=== PATIENT | male | born 1940 | race Caucasian/White ===

== ENCOUNTER 2020-08-18 12:36 | Inpatient (IN) ==
[2020-08-18] MEDS ORDERED: SODIUM CHLORIDE 0.9% 500 ML IV SCH (14:00)
[2020-08-18] MEDS ORDERED: THIAMINE HCL 200 MG in SODIUM CHLORIDE 0.9% 50 ML IV STA (14:03)
--- NOTE | 2020-08-18 14:03 | Emergency Department Note ---
Impression & Plan Palpitations, Atrial flutter, Abnormal EKG ED Provider Note NAME: JORGE RAE AGE: 79 SEX: M : 1940 ARRIVES VIA: Walk-In INFORMANT: Patient, ED PROVIDER(S): Brett Pfeiffer DO CHIEF COMPLAINT: Palpitations HPI: The patient is a 79-year-old male who presented to the emergency department for an evaluation of palpitations. The patient has a history of coronary artery bypass grafting in the past. He has had atrial flutter in the past. The patient has noted increase of his heart rate over the course the last day. He denies having any recent illnesses. He denies having any chest pain. He denies having any abdominal pain or difficulty breathing. He does have a history of lower extremity swelling but not worse than usual. The patient denies having any fever or cough. The patient states that he normally has a heart rate that is in the 50s to 60s. He started noticing that his heart rate was faster today and when he checked his pulse it was always around 100 bpm. He is visiting family from the area and does not have a family doctor locally. He came directly to the emergency department for the symptoms. ROS: See above HPI for pertinent positives & negatives. A total of 10 systems reviewed and were otherwise negative. PAST MEDICAL HISTORY: See Below PAST SURGICAL HISTORY: See Below FAMILY HISTORY: See Below SOCIAL HISTORY: See Below HOME MEDICATIONS: See Below ALLERGIES: See Below VITALS: See Below PHYSICAL EXAMINATION: GENERAL: Patient is awake alert in no acute distress patient is resting comfortably and showing no signs of anxiety EYES: The conjunctivae are clear. The pupils are round and reactive. EARS, NOSE, MOUTH AND THROAT: The nose is without any evidence of any deformity. Mucous membranes are moist. Tongue is midline. NECK: The neck is nontender and supple. RESPIRATORY: Normal respiratory effort is noted there is no evidence of wheezing rhonchi or rales CARDIOVASCULAR: Regular rate and rhythm was noted to auscultation. There was no definite murmur noted. GASTROINTESTINAL: The abdomen is soft. Abdomen is nontender. MUSCULOSKELETAL/EXTREMITIES: There is no evidence of gross deformity full range of motion is noted in the hips and shoulders. SKIN: There is no obvious evidence of any rash. Trace pedal edema was noted bilaterally. NEUROLOGIC: Patient is awake alert and oriented x 3. MEDICAL DECISION MAKING: The patient is a 79-year-old male who presented to the emergency department for an evaluation of palpitations. The patient did not have any specific chest pain or abdominal pain. The patient has a history of alcohol use but also has a history of coronary artery bypass grafting. The patient was treated with IV thiamine IV fluids and IV Lopressor in the emergency department. He was reeval uated multiple times. He continues to have what appears to be atrial flutter but it is slower than a typical atrial flutter picture. He also will have episodes where he would break to a slower atrial flutter. His EKG is also abnormal with ischemic changes. The patient had an elevated D-dimer which led to a CT of the chest. No signs of pulmonary embolism were noted. The patient was noted to have a questionable area of free air in the abdomen. This led to a CT of the abdomen and pelvis. The patient was reevaluated multiple times. I discussed the patient's condition with him. He is not from the area and does not have any follow-up available immediately. For this reason I will discuss his case with the on-call [facility] hospitalist. He may require further inpatient evaluation and possible cardiology evaluation. Triage Nursing notes reviewed. Prior medical records reviewed Vital Signs: reviewed and remarkable for elevated blood pressure and tachycardia. Differential diagnosis: Premature contractions, electrolyte abnormality, cardiac dysrhythmia, thyroid dysfunction, pulmonary embolism, infection, gastrointestinal, as well as other pathologies. ER treatment provided: See below Diagnostics interpreted by me: ECG: EKG was obtained in the emergency department. My interpretation is sinus tachycardia at 101 bpm. There was no PVCs noted. There was high as well as low lateral ST segment depressions noted. No previous tracing was available. A second EKG was obtained in the emergency department. My interpretation is sinus tachycardia at 101 bpm. There is no ectopy. There was persistence of the lateral ST segment abnormalities. No significant change was noted from the earlier tracing. Cardiac Monitoring: An order was placed for continuous cardiac monitoring. The monitor shows a rate of 110 bpm with atrial flutter rhythm. Laboratory studies: As stated above and show below. Imaging studies: See below Consultation(s): I discussed this case with Dr. Wood. He will evaluate the patient in the emergency department for further management and disposition. ED COURSE: Procedures: none PDMP:reviewed and no issues Critical Care: I have personally spent greater than 65 minutes of critical care time in the direct management of this patient. This includes bedside care, interpretation of diagnostic studies, and testing, discussion with consultants, patient, and family members, and other required patient management activities. This 65 minutes is in excess of all separately billable procedures. Past Med/Surg History Medical History (Updated 08/19/20 @ 06:17 by Ángel Dasilva MD) Atrial flutter BPH w urinary obs/LUTS Depression GERD (gastroesophageal reflux disease) Hypertension NSVT (nonsustained ventricular tachycardia) Vitamin B12 deficiency Surgical History History of left hip replacement Hx of CABG Social History (Updated 08/18/20 @ 14:03 by Brett Pfeiffer DO) Smoking Status: Never smoker Second Hand Exposure: No; Do You Dip or Chew Tobacco: No; Hx Alcohol Use: Yes Alcohol type: beer, wine and hard liquor Alcohol Intake Frequency: 4 or More x per/Week Hx Substance Use: No Preferred Language: Vietnamese Communication Ability: Effective C.O.D. Biller Required: No Beliefs That Will Affect Care: None Current Living Situation: Spouse Other Information That Helps Us Care for You: No Feels Safe at Home: Yes Safety Concerns: Feels Safe At This Time Assistive Devices: None Allergies Allergies Allergy/AdvReac Type Severity Reaction Status Date / Time No Known Allergies Allergy Unverified 08/18/20 15:13 Home Meds Home Medications Medication Instructions Recorded Confirmed amlodipine 10 mg PO DAILY 08/18/20 08/18/20 aspirin [Aspirin Low Dose] 81 mg PO DAILY 08/18/20 08/18/20 atorvastatin 40 mg PO QPM 08/18/20 08/18/20 cholecalciferol (vitamin D3) 25 mcg PO DAILY 08/18/20 08/18/20 [Vitamin D3] cyanocobalamin (vitamin B-12) 1,000 mcg PO DAILY 08/18/20 08/18/20 [Vitamin B-12] fluoxetine 10 mg PO Q OTHER DAY 08/18/20 08/18/20 losartan 100 mg PO DAILY 08/18/20 08/18/20 metoprolol succinate 50 mg PO DAILY 08/18/20 08/18/20 omeprazole 20 mg PO DAILY 08/18/20 08/18/20 terazosin 10 mg PO DAILY 08/18/20 08/18/20 Results & Data (ED) Vital Signs Vital Signs - 24 hr 08/18/20 12:55 08/18/20 14:37 08/18/20 15:21 Temperature 36.1 C L Temperature Source Temporal Artery Scan Pulse Rate 101 H Pulse Rate [Apical] 104 H Pulse Rate from SpO2 Sensor Respiratory Rate 20 18 Blood Pressure 166/84 H Blood Pressure [Left Arm] 180/109 H Blood Pressure Mean 111 Blood Pressure Mean [Left Arm] 132 Pulse Oximetry 99 97 99 Oxygen Delivery Method Room Air Room Air Room Air Sepsis Recent Fever Within 48 Hours No Sepsis New/Unexplained Change in Mental Status No Sepsis Action Taken by Nursing No Action Required 08/18/20 15:22 08/18/20 15:30 08/18/20 15:32 Temperature Temperature Source Pulse Rate 102 H 103 H 102 H Pulse Rate [Apical] Pulse Rate from SpO2 Sensor 103 H 103 H Respiratory Rate 15 20 Blood Pressure 167/101 H 177/104 H 177/104 H Blood Pressure [Left Arm] Blood Pressure Mean 123 128 Blood Pressure Mean [Left Arm] Pulse Oximetry 98 97 Oxygen Delivery Method Sepsis Recent Fever Within 48 Hours Sepsis New/Unexplained Change in Mental Status Sepsis Action Taken by Nursing 08/18/20 15:36 08/18/20 15:46 08/18/20 15:47 Temperature Temperature Source Pulse Rate 101 H 101 H 101 H Pulse Rate [Apical] Pulse Rate from SpO2 Sensor 102 H 102 H 101 H Respiratory Rate 22 16 16 Blood Pressure 161/94 H 176/103 H Blood Pressure [Left Arm] Blood Pressure Mean 116 127 Blood Pressure Mean [Left Arm] Pulse Oximetry 98 97 98 Oxygen Delivery Method Sepsis Recent Fever Within 48 Hours Sepsis New/Unexplained Change in Mental Status Sepsis Action Taken by Nursing 08/18/20 15:54 08/18/20 16:00 08/18/20 17:19 Temperature Temperature Source Pulse Rate 104 H 88 103 H Pulse Rate [Apical] Pulse Rate from SpO2 Sensor 94 H 103 H Respiratory Rate 12 24 Blood Pressure 176/103 H 165/99 H 174/96 H Blood Pressure [Left Arm] Blood Pressure Mean 121 122 Blood Pressure Mean [Left Arm] Pulse Oximetry 98 98 Oxygen Delivery Method Sepsis Recent Fever Within 48 Hours Sepsis New/Unexplained Change in Mental Status Sepsis Action Taken by Nursing 08/18/20 18:12 08/18/20 18:30 08/18/20 19:00 Temperature Temperature Source Pulse Rate 104 H 104 H 105 H Pulse Rate [Apical] Pulse Rate from SpO2 Sensor 105 H 104 H 105 H Respiratory Rate 18 17 18 Blood Pressure 161/98 H 165/94 H 156/95 H Blood Pressure [Left Arm] Blood Pressure Mean 119 117 115 Blood Pressure Mean [Left Arm] Pulse Oximetry 98 97 97 Oxygen Delivery Method Sepsis Recent Fever Within 48 Hours Sepsis New/Unexplained Change in Mental Status Sepsis Action Taken by Nursing 08/18/20 20:00 Temperature Temperature Source Pulse Rate 107 H Pulse Rate [Apical] Pulse Rate from SpO2 Sensor 107 H Respiratory Rate 13 Blood Pressure 166/99 H Blood Pressure [Left Arm] Blood Pressure Mean 121 Blood Pressure Mean [Left Arm] Pulse Oximetry 98 Oxygen Delivery Method Sepsis Recent Fever Within 48 Hours Sepsis New/Unexplained Change in Mental Status Sepsis Action Taken by Shelter Medications Current Medication List: was personally reviewed by me Laboratory Data Attestation: I reviewed the patient's lab results. Result diagrams: 08/19/20 06:07 08/19/20 06:07 Lab Results 08/18/20 08/18/20 08/18/20 Range/Units 14:20 14:20 14:20 WBC 6.28 (4.8-10.8) K/uL RBC 4.35 L (4.7-6.1) M/uL Hgb 13.9 L (14.0-18.0) g/dL Hct 39.6 L (42-52) % MCV 91.0 (80-100) fL MCH 32.0 (25-34) pg MCHC 35.1 (32-36) g/dL RDW Std Deviation 47.5 H (36.4-46.3) fL RDW Coeff of Gila 14.1 (11.5-14.5) % Plt Count 171 (130-400) K/uL MPV 11.5 H (7.4-10.4) fL Immature Gran % (Auto) 0.3 % Neut % (Auto) 59.5 % Lymph % (Auto) 26.4 % Woods % (Auto) 9.2 % Eos % (Auto) 3.3 % Baso % (Auto) 1.3 % Neut # (Auto) 3.73 (1.4-6.5) K/uL Lymph # (Auto) 1.66 (1.2-3.4) K/uL Woods # (Auto) 0.58 (0.11-0.59) K/uL Eos # (Auto) 0.21 (0-0.5) K/uL Baso # (Auto) 0.08 (0-0.2) K/uL Immature Gran # (Auto) 0.02 (0.00-0.02) K/uL PT 11.1 (9.0-12.0) Seconds INR 1.1 (0.9-1.1) APTT 24.8 (21.0-31.0) Seconds PTT Ratio 0.9 D-Dimer (0-500) ug/L FEU Sodium 142 (136-145) mmol/L Potassium 4.1 (3.5-5.1) mmol/L Chloride 109 H (98-107) mmol/L Carbon Dioxide 28 (21-32) mmol/L Anion Gap 5.0 (3-11) BUN 25 H (7-18) mg/dl Creatinine 0.95 (0.6-1.4) mg/dl Est Cr Clr Drug Dosing 73.6 ml/min Est GFR ( Amer) 89.1 Est GFR (Non-Af Amer) 76.9 BUN/Creatinine Ratio 25.8 H (10-20) Glucose 104 H (70-99) mg/dl Calcium 9.3 (8.5-10.1) mg/dl Magnesium 2.1 (1.8-2.4) mg/dl Total Bilirubin 1.0 (0.2-1) mg/dl AST 42 H (15-37) U/L ALT 51 (12-78) U/L Alkaline Phosphatase 82 (45-117) U/L Troponin I < 0.015 (0-0.045) ng/ml Total Protein 7.3 (6.4-8.2) gm/dl Albumin 4.1 (3.4-5.0) gm/dl Globulin 3.2 (2.5-4.0) gm/dl Albumin/Globulin Ratio 1.3 (0.9-2) TSH 2.950 (0.300-4.500) uIu/ml Urine Color Urine Appearance (Clear) Urine pH (4.5-7.5) Ur Specific Webster (1.000-1.030) Urine Protein (Negative) Urine Glucose (UA) (Negative) Urine Ketones (Negative) Urine Blood (Negative) Urine Nitrite (Negative) Urine Bilirubin (Negative) Urine Urobilinogen (Negative) Ur Leukocyte Esterase (Negative) COVID-19 Eval Order SARS-CoV-2 (PCR) (Negative) Influenza Type A (PCR) (Neg) Influenza Type B (PCR) (Neg) RSV (RT-PCR) (Neg) 08/18/20 08/18/20 08/18/20 Range/Units 14:20 14:40 16:20 WBC (4.8-10.8) K/uL RBC (4.7-6.1) M/uL Hgb (14.0-18.0) g/dL Hct (42-52) % MCV (80-100) fL MCH (25-34) pg MCHC (32-36) g/dL RDW Std Deviation (36.4-46.3) fL RDW Coeff of Gila (11.5-14.5) % Plt Count (130-400) K/uL MPV (7.4-10.4) fL Immature Gran % (Auto) % Neut % (Auto) % Lymph % (Auto) % Woods % (Auto) % Eos % (Auto) % Baso % (Auto) % Neut # (Auto) (1.4-6.5) K/uL Lymph # (Auto) (1.2-3.4) K/uL Woods # (Auto) (0.11-0.59) K/uL Eos # (Auto) (0-0.5) K/uL Baso # (Auto) (0-0.2) K/uL Immature Gran # (Auto) (0.00-0.02) K/uL PT (9.0-12.0) Seconds INR (0.9-1.1) APTT (21.0-31.0) Seconds PTT Ratio D-Dimer 4180 H* (0-500) ug/L FEU Sodium (136-145) mmol/L Potassium (3.5-5.1) mmol/L Chloride (98-107) mmol/L Carbon Dioxide (21-32) mmol/L Anion Gap (3-11) BUN (7-18) mg/dl Creatinine (0.6-1.4) mg/dl Est Cr Clr Drug Dosing ml/min Est GFR ( Amer) Est GFR (Non-Af Amer) BUN/Creatinine Ratio (10-20) Glucose (70-99) mg/dl Calcium (8.5-10.1) mg/dl Magnesium (1.8-2.4) mg/dl Total Bilirubin (0.2-1) mg/dl AST (15-37) U/L ALT (12-78) U/L Alkaline Phosphatase (45-117) U/L Troponin I (0-0.045) ng/ml Total Protein (6.4-8.2) gm/dl Albumin (3.4-5.0) gm/dl Globulin (2.5-4.0) gm/dl Albumin/Globulin Ratio (0.9-2) TSH (0.300-4.500) uIu/ml Urine Color Yellow Urine Appearance Clear (Clear) Urine pH 7.0 (4.5-7.5) Ur Specific Webster 1.009 (1.000-1.030) Urine Protein Negative (Negative) Urine Glucose (UA) Negative (Negative) Urine Ketones Negative (Negative) Urine Blood Negative (Negative) Urine Nitrite Negative (Negative) Urine Bilirubin Negative (Negative) Urine Urobilinogen Negative (Negative) Ur Leukocyte Esterase Negative (Negative) COVID-19 Eval Order [facility]Rsv at [facility] SARS-CoV-2 (PCR) (Negative) Influenza Type A (PCR) (Neg) Influenza Type B (PCR) (Neg) RSV (RT-PCR) (Neg) 08/18/20 Range/Units 16:20 WBC (4.8-10.8) K/uL RBC (4.7-6.1) M/uL Hgb (14.0-18.0) g/dL Hct (42-52) % MCV (80-100) fL MCH (25-34) pg MCHC (32-36) g/dL RDW Std Deviation (36.4-46.3) fL RDW Coeff of Gila (11.5-14.5) % Plt Count (130-400) K/uL MPV (7.4-10.4) fL Immature Gran % (Auto) % Neut % (Auto) % Lymph % (Auto) % Woods % (Auto) % Eos % (Auto) % Baso % (Auto) % Neut # (Auto) (1.4-6.5) K/uL Lymph # (Auto) (1.2-3.4) K/uL Woods # (Auto) (0.11-0.59) K/uL Eos # (Auto) (0-0.5) K/uL Baso # (Auto) (0-0.2) K/uL Immature Gran # (Auto) (0.00-0.02) K/uL PT (9.0-12.0) Seconds INR (0.9-1.1) APTT (21.0-31.0) Seconds PTT Ratio D-Dimer (0-500) ug/L FEU Sodium (136-145) mmol/L Potassium (3.5-5.1) mmol/L Chloride (98-107) mmol/L Carbon Dioxide (21-32) mmol/L Anion Gap (3-11) BUN (7-18) mg/dl Creatinine (0.6-1.4) mg/dl Est Cr Clr Drug Dosing ml/min Est GFR ( Amer) Est GFR (Non-Af Amer) BUN/Creatinine Ratio (10-20) Glucose (70-99) mg/dl Calcium (8.5-10.1) mg/dl Magnesium (1.8-2.4) mg/dl Total Bilirubin (0.2-1) mg/dl AST (15-37) U/L ALT (12-78) U/L Alkaline Phosphatase (45-117) U/L Troponin I (0-0.045) ng/ml Total Protein (6.4-8.2) gm/dl Albumin (3.4-5.0) gm/dl Globulin (2.5-4.0) gm/dl Albumin/Globulin Ratio (0.9-2) TSH (0.300-4.500) uIu/ml Urine Color Urine Appearance (Clear) Urine pH (4.5-7.5) Ur Specific Webster (1.000-1.030) Urine Protein (Negative) Urine Glucose (UA) (Negative) Urine Ketones (Negative) Urine Blood (Negative) Urine Nitrite (Negative) Urine Bilirubin (Negative) Urine Urobilinogen (Negative) Ur Leukocyte Esterase (Negative) COVID-19 Eval Order SARS-CoV-2 (PCR) NEGATIVE (Negative) Influenza Type A (PCR) Negative (Neg) Influenza Type B (PCR) Negative (Neg) RSV (RT-PCR) Negative (Neg) Administered Medications Atorvastatin Calcium (Atorvastatin 40 Mg Tab) 40 mg PO QPM [facility] Stop: 09/17/20 22:17 Last Admin: 08/18/20 23:17 Dose: 40 mg Documented by: [id number] Enoxaparin Sodium (Enoxaparin 100 Mg/1ml Syr) 100 mg SQ Q12 [facility]Y Stop: 09/17/20 20:59 Last Admin: 08/18/20 22:45 Dose: 100 mg Documented by: [id number] Folic Acid (Folic Acid 1 Mg Tab) 1 mg PO QAM [facility] Stop: 09/17/20 08:59 Last Admin: 08/18/20 22:40 Dose: 1 mg Documented by: [id number] Piperacillin Sod/Tazobactam (Sod 3.375 gm/ Dextrose) 115 mls @ 28.75 mls/hr IV Q8H [facility]; Protocol Stop: 08/28/20 21:59 Last Admin: 08/19/20 05:46 Dose: 28.8 mls/hr Documented by: [id number] Infusion: 08/19/20 02:51 Dose: 0 mls/hr Documented by: [id number] Admin: 08/18/20 22:40 Dose: 28.8 mls/hr Documented by: [id number] Potassium Chloride/Sodium Chloride (Normal Saline W/20 Meq Kcl) 20 meq in 1,000 mls @ 60 mls/hr IV .[id number] [facility] Stop: 09/17/20 22:17 Last Admin: 08/18/20 23:17 Dose: 60 mls/hr Documented by: [id number] Metoprolol Succinate (Metoprolol Succ 50mg Ext Rel Tab) 50 mg PO BID [facility] Stop: 09/17/20 22:17 Last Admin: 08/18/20 23:57 Dose: Not Given Documented by: [id number] Thiamine HCl (Thiamine Hcl 100 Mg Tab) 100 mg PO QAM [facility] Stop: 09/17/20 08:59 Last Admin: 08/18/20 22:40 Dose: 100 mg Documented by: [id number] Discontinued Medications Sodium Chloride (Nss) 500 mls @ 999 mls/hr IV .Q31M [facility] Stop: 08/18/20 14:30 Last Infusion: 08/18/20 14:53 Dose: 0 mls/hr Documented by: [id number] Admin: 08/18/20 14:22 Dose: 999 mls/hr Documented by: [id number] Thiamine HCl 200 mg/ Sodium (Chloride) 52 mls @ 208 mls/hr IV NOW STA Stop: 08/18/20 14:17 Last Infusion: 08/18/20 14:39 Dose: 0 mls/hr Documented by: [id number] Admin: 08/18/20 14:22 Dose: 208 mls/hr Documented by: [id number] Piperacillin Sod/Tazobactam Sod (Zosyn) 4.5 gm in 120 mls @ 240 mls/hr IV NOW ONE Stop: 08/18/20 18:19 Last Infusion: 08/18/20 22:25 Dose: 0 mls/hr Documented by: [id number] Admin: 08/18/20 18:12 Dose: 240 mls/hr Documented by: [id number] Ioversol (Optiray 320 125ml) 119 ml IV ONCE ONE Stop: 08/18/20 17:01 Last Admin: 08/18/20 17:01 Dose: 119 ml Documented by: [id number] Metoprolol Succinate (Metoprolol Succ 50mg Ext Rel Tab) 50 mg PO NOW STA Stop: 08/18/20 20:26 Last Admin: 08/18/20 22:46 Dose: Not Given Documented by: [id number] Metoprolol Tartrate (Metoprolol Tartrate 1 Mg/Ml Vial) 5 mg IV NOW STA Stop: 08/18/20 15:23 Last Admin: 08/18/20 15:32 Dose: 5 mg Documented by: [id number] Metoprolol Tartrate (Metoprolol Tartrate 1 Mg/Ml Vial) 5 mg IV NOW STA Stop: 08/18/20 15:50 Last Admin: 08/18/20 15:54 Dose: 5 mg Documented by: [id number] Metoprolol Tartrate (Metoprolol Tartrate 1 Mg/Ml Vial) 5 mg IV NOW STA Stop: 08/18/20 17:50 Last Admin: 08/18/20 18:12 Dose: 5 mg Documented by: [id number] Imaging Data Radiologist's Impression: Chest X-Ray 08/18/20 13:59 XR chest 1V portable HISTORY: weakness COMPARISON: None. FINDINGS: No focal lung consolidations to suggest pneumonia. No evidence for pulmonary edema. The cardiac silhouette is mildly enlarged. There are poststernotomy changes. No pleural effusions. No pneumothorax. IMPRESSION: Mild cardiomegaly. Otherwise, no acute process within the chest. ACT 112: Negative or not required by law. Electronically signed by: Castro Brunner M.D. 08/18/2020 2:26 PM Chest CTA 08/18/20 16:20 CT ANGIOGRAM OF THE CHEST CLINICAL HISTORY: Dyspnea. COMPARISON STUDY: Chest x-ray dated 08/18/2020. TECHNIQUE: Following the IV administration of 119 cc of Optiray 320, CT angiogram of the chest was performed from the upper abdomen to the thoracic inlet utilizing the pulmonary embolus protocol. Images are reviewed in the axial, sagittal, and coronal planes. 3-D MIPS images are created and assessed. IV contrast was administered without complication. A dose lowering technique was utilized adhering to the principles of ALARA. CT DOSE: 517.65 mGycm FINDINGS: Thyroid: Normal in size and heterogeneous in attenuation. Thoracic aorta: There is atherosclerotic calcification of the thoracic aorta, which is normal in caliber and demonstrates standard 3-vessel arch anatomy. No dissection is seen. Pulmonary vasculature: The pulmonary trunk is normal in caliber. There are no filling defects identified in main, lobar, or segmental pulmonary branches to suggest pulmonary embolus. Heart: The patient is status post midline sternotomy. The heart is enlarged and without pericardial effusion. The coronary arteries are densely calcified. Epicardial pacing leads are noted. Lungs and pleural spaces: Evaluation of the lung parenchyma is degraded by motion artifact. Emphysematous change is noted. There is bibasilar scarring/atelectasis. No airspace consolidation is seen typical for pneumonia and there is no pleural effusion. Scattered calcified granulomas are noted. There is a 1.4 cm irregular pleural-based density in the right apex seen on image #256. There is minimal low suspicion nodularity along the right major fissure seen on image #137. Mediastinum: There is no mediastinal lymphadenopathy. Zari: Clear. Axillae: There is no axillary lymphadenopathy. Upper abdomen: There is trace perihepatic ascites. Soft tissue infiltration is suggested in the left upper quadrant. Question foci of venous gas within the left upper quadrant along the greater curvature of the stomach (axial image #9). Skeletal structures: No lytic or blastic bony lesions are seen. IMPRESSION: 1. There is no evidence of pulmonary embolus in the main, lobar, or segmental pulmonary arteries. 2. Cardiomegaly and emphysema. 3. There is trace perihepatic ascites, with inflammatory change suggested in the left upper quadrant. Question foci of intravenous gas in the upper abdomen. These findings are nonspecific and not well assessed on this examination, but raise concern for intra-abdominal pathology. Consider dedicated CT of the abdomen for further assessment. 4. There is no airspace consolidation or pleural effusion. 5. There is a 1.4 cm indeterminant focus of pleural-based nodularity in the right upper lobe. This may represent scarring/fibrosis. A 3 month follow-up chest CT is recommended for reassessment. 6. Additional findings as above. ACT 112: Negative or not required by law. Electronically signed by: Gustavo Hudson M.D. 08/18/2020 5:41 PM Discharge Plan Visit Data Chief Complaint: Tachycardia Stated Complaint: TACHYCARDIA ED Provider: Brett Pfeiffer Discharge Problem: Palpitations, Atrial flutter, Abnormal EKG Patient Disposition: Admitted As Inpatient Condition: Good Discharge Instructions Interventions: ED Discharge Assessment Last Done: 08/18/20 22:20 Discharge Problem: Atrial flutter Qualifiers: Atrial flutter type: unspecified Qualified Code(s): I48.92 - Unspecified atrial flutter
--- NOTE | 2020-08-18 14:28 | XRay Report ---
XR chest 1V portable HISTORY: weakness COMPARISON: None. FINDINGS: No focal lung consolidations to suggest pneumonia. No evidence for pulmonary edema. The car diac silhouette is mildly enlarged. There are poststernotomy changes. No pleural effusions. No pneumo thorax. IMPRESSION: Mild cardiomegaly. Otherwise, no acute process within the chest. ACT 112: Negative or not required by law. Electronically signed by: Castro Brunner M.D. 08/18/2020 2:26 PM
[2020-08-18 14:36] LABS: Basophils # (auto) 0.08 K/uL (0-0.2); Basophils % (auto) 1.3 %; Eosinophils # (auto) 0.21 K/uL (0-0.5); Eosinophils % (auto) 3.3 %; Hematocrit (blood only) 39.6 % (42-52); Hemoglobin 13.9 g/dL (14.0-18.0); Immature Granulocytes # (auto) 0.02 K/uL (0.00-0.02); Immature Granulocytes % (auto) 0.3 %; Lymphocytes # (auto) 1.66 K/uL (1.2-3.4); Lymphocytes % (auto) 26.4 %; Mean Corpuscular Hgb Conc 35.1 g/dL (32-36); Mean Platelet Volume 11.5 fL (7.4-10.4); Monocytes # (auto) 0.58 K/uL (0.11-0.59); Monocytes % (auto) 9.2 %; Neutrophils # (auto) 3.73 K/uL (1.4-6.5); Neutrophils % (auto) 59.5 %; Platelet Count 171 K/uL (130-400); RDW Coefficient of Variation 14.1 % (11.5-14.5); RDW Standard Deviation 47.5 fL (36.4-46.3); Red Blood Count 4.35 M/uL (4.7-6.1); White Blood Count 6.28 K/uL (4.8-10.8)
[2020-08-18 14:47] LABS: INR 1.1 (0.9-1.1); Partial Thromboplastin Ratio 0.9; Partial Thromboplastin Time 24.8 Seconds (21.0-31.0); Prothrombin Time 11.1 Seconds (9.0-12.0)
[2020-08-18 14:50] LABS: Appearance Urine Clear (Clear); Bilirubin Urine Negative (Negative); Blood Urine Negative (Negative); Color Urine Yellow; Glucose Urine UA Negative (Negative); Ketones Urine Negative (Negative); Leukocyte Esterase Urine Negative (Negative); Nitrite Urine Negative (Negative); Protein Urine Negative (Negative); Specific Gravity Urine 1.009 (1.000-1.030); Urobilinogen Urine Negative (Negative)
[2020-08-18 14:57] LABS: Albumin Level 4.1 gm/dl (3.4-5.0); BUN Creatinine Ratio 25.8 (10-20); Blood Urea Nitrogen 25 mg/dl (7-18); Calcium 9.3 mg/dl (8.5-10.1); Carbon Dioxide 28 mmol/L (21-32); Chloride 109 mmol/L (98-107); Creatinine Clr Calc Pharmacy 73.6 ml/min; Est GFR (African American) 89.1; Est GFR (Non-African American) 76.9; Glucose 104 mg/dl (70-99); Magnesium 2.1 mg/dl (1.8-2.4); Potassium 4.1 mmol/L (3.5-5.1); Sodium 142 mmol/L (136-145)
[2020-08-18 15:07] LABS: Alanine Aminotransferase 51 U/L (12-78); Albumin Globulin Ratio 1.3 (0.9-2); Alkaline Phosphatase 82 U/L (45-117); Aspartate Aminotransferase 42 U/L (15-37); Globulin 3.2 gm/dl (2.5-4.0); Total Protein 7.3 gm/dl (6.4-8.2); Troponin I < 0.015 ng/ml (0-0.045)
[2020-08-18] MEDS ORDERED: METOPROLOL TARTRATE 1 MG/ML VIAL IV STA ×3 (15:22→17:49)
[2020-08-18 16:12] LABS: D Dimer 4180 ug/L FEU (0-500)
[2020-08-18] MEDS ORDERED: OPTIRAY 320 125ml IV ONE (17:00)
[2020-08-18 17:14] LABS: Influenza A virus by PCR Negative (Neg); Influenza B virus by PCR Negative (Neg); RSV by PCR Negative (Neg); SARS CoV2 RNA(COVID-19) InHosp NEGATIVE (Negative)
--- NOTE | 2020-08-18 17:42 | CT Scan Report ---
CT ANGIOGRAM OF THE CHEST CLINICAL HISTORY: Dyspnea. COMPARISON STUDY: Chest x-ray dated 08/18/2020. TECHNIQUE: Following the IV administration of 119 cc of Optiray 320, CT angiogram of the chest was pe rformed from the upper abdomen to the thoracic inlet utilizing the pulmonary embolus protocol. Images are reviewed in the axial, sagittal, and coronal planes. 3-D MIPS images are created and assessed. I V contrast was administered without complication. A dose lowering technique was utilized adhering to the principles of ALARA. CT DOSE: 517.65 mGycm FINDINGS: Thyroid: Normal in size and heterogeneous in attenuation. Thoracic aorta: There is atherosclerotic calcification of the thoracic aorta, which is normal in susan julia and demonstrates standard 3-vessel arch anatomy. No dissection is seen. Pulmonary vasculature: The pulmonary trunk is normal in caliber. There are no filling defects identif ied in main, lobar, or segmental pulmonary branches to suggest pulmonary embolus. Heart: The patient is status post midline sternotomy. The heart is enlarged and without pericardial e ffusion. The coronary arteries are densely calcified. Epicardial pacing leads are noted. Lungs and pleural spaces: Evaluation of the lung parenchyma is degraded by motion artifact. Emphysema tous change is noted. There is bibasilar scarring/atelectasis. No airspace consolidation is seen typi julio cesar for pneumonia and there is no pleural effusion. Scattered calcified granulomas are noted. There i s a 1.4 cm irregular pleural-based density in the right apex seen on image #256. There is minimal low suspicion nodularity along the right major fissure seen on image #137. Mediastinum: There is no mediastinal lymphadenopathy. Zari: Clear. Axillae: There is no axillary lymphadenopathy. Upper abdomen: There is trace perihepatic ascites. Soft tissue infiltration is suggested in the left upper quadrant. Question foci of venous gas within the left upper quadrant along the greater curvatur e of the stomach (axial image #9). Skeletal structures: No lytic or blastic bony lesions are seen. IMPRESSION: 1. There is no evidence of pulmonary embolus in the main, lobar, or segmental pulmonary arteries. 2. Cardiomegaly and emphysema. 3. There is trace perihepatic ascites, with inflammatory change suggested in the left upper quadrant. Question foci of intravenous gas in the upper abdomen. These findings are nonspecific and not well a ssessed on this examination, but raise concern for intra-abdominal pathology. Consider dedicated CT o f the abdomen for further assessment. 4. There is no airspace consolidation or pleural effusion. 5. There is a 1.4 cm indeterminant focus of pleural-based nodularity in the right upper lobe. This ma y represent scarring/fibrosis. A 3 month follow-up chest CT is recommended for reassessment. 6. Additional findings as above. ACT 112: Negative or not required by law. Electronically signed by: Gustavo Hudson M.D. 08/18/2020 5:41 PM
[2020-08-18] MEDS ORDERED: PIPERACILLIN/TAZOBACTAM 4.5 GM/120 ML BAG IV ONE (17:50)
[2020-08-18] MEDS ORDERED: PIPERACILL/TAZOBAC CONSULT ACTIVE PRN (17:50)
--- NOTE | 2020-08-18 18:52 | CT Scan Report ---
CT SCAN OF THE ABDOMEN AND PELVIS WITHOUT IV CONTRAST CLINICAL HISTORY: Abnormal chest CT. Abdominal ascites. COMPARISON STUDY: Chest CT dated 08/18/2020. TECHNIQUE: CT scan of the abdomen and pelvis is performed from the lung bases to the proximal femora. Images are reviewed in the axial, sagittal, and coronal planes. IV contrast was not administered for this examination. A dose lowering technique was utilized adhering to the principles of ALARA. Examin ation is degraded by motion artifact. CT DOSE: 568.31 mGy.cm FINDINGS: Lung bases: The heart is mildly enlarged and without pericardial effusion. Epicardial pacing leads ar e noted. There is bibasilar scarring/atelectasis. There are scattered calcified granulomas. No airspa ce consolidation or pleural effusion is identified. Liver: The unenhanced liver is normal in size, contour, and attenuation. There is no intrahepatic goran iary ductal dilatation. Gallbladder: Unremarkable. Spleen: Normal in size and attenuation. Pancreas: Unremarkable. Adrenal glands: Unremarkable. Kidneys: The unenhanced kidneys demonstrate cortical atrophy. There is mild to moderate bilateral hyd roureteronephrosis, likely secondary to marked bladder distention. The renal collecting systems and u reters are filled with excreted IV contrast. There is no evidence of urothelial lesion or contour def orming mass lesion. A 2.3 cm cyst is noted in the left kidney. Abdominal vasculature: The abdominal aorta is normal in course and caliber noting advanced atheroscle rotic calcification. Bowel: There is no bowel obstruction. Mild fecal retention is noted throughout the colon. The appendi x is not visualized. Peritoneum: There is trace perihepatic ascites. Mild edematous changes noted throughout the mesentery . No intraperitoneal free air is seen. No venous gas is seen in the upper abdomen. Lymphadenopathy: None. Pelvic viscera: Evaluation of the pelvis is degraded by streak artifact from a left hip arthroplasty. The bladder is markedly distended and filled with excreted IV contrast. The bladder wall appears thi ckened and trabeculated indicating chronic outlet obstruction. The prostate gland is significantly en larged noting median lobe hypertrophy. Skeletal structures: The skeletal structures are osteopenic. There is moderate to advanced lumbosacra l spondylosis. No lytic or blastic lesions are seen. A left hip arthroplasty is in place. Soft tissues: There is body wall edema. IMPRESSION: 1. Motion compromised examination. 2. Prostatomegaly with evidence of chronic bladder outlet obstruction. 3. There is mild to moderate bilateral hydroureteronephrosis, likely secondary to marked bladder dist ention. 4. There is trace perihepatic ascites, mesenteric edema, and body wall edema. These findings suggest fluid overload. 5. No venous gas is seen in the upper abdomen. The finding of concern by chest CT likely corresponded to partially imaged bowel. 6. Additional findings as above. ACT 112: Negative or not required by law. Electronically signed by: Gustavo Hudson M.D. 08/18/2020 6:50 PM
[2020-08-18] MEDS ORDERED: LORazepam 2 MG/4 ML VIAL IV PRN (20:25)
[2020-08-18] MEDS ORDERED: METOPROLOL SUCC 50MG EXT REL TAB PO STA (20:25)
[2020-08-18] MEDS ORDERED: ATIVAN IV ALCOHOL WITHDRAWL IV PRN (20:25)
[2020-08-18] MEDS ORDERED: LORazepam 3 MG/6 ML VIAL IV PRN (20:25)
[2020-08-18] MEDS ORDERED: LORazepam 1 MG/2 ML VIAL IV PRN (20:25)
--- NOTE | 2020-08-18 20:27 | History & Physical Report ---
Date of Service August 18, 2020 Assessment & Plan (1) Intermittent atrial flutter: Atrial flutter palpitations/history atrial fibrillation post CABG/hypertension- Patient reports he did require anticoagulation shortly after his bypass several years ago. He denies any further episodes of irregularity of heart rate for the past several years. Heart monitor in the emergency initially showed sustained heart rate at 101 with was thought to be atrial flutter with persistent block. As patient was watched for the emergency department, he alternated between persistent block and variable block of 2-1 and 3:1 ratio. No electrolyte abnormalities to explain symptoms. The patient will be admitted to telemetry for serial cardiac enzymes, serial EKG's, cardiac rhythm monitoring and a 2-D echocardiogram with Dopplers. Lovenox 1 mg kilogram subcu every 12 hours Consult cardiology to see in a.m. May be an alcohol withdrawal component, as patient reports drinking some amounts of alcohol daily basis, and has just completed a long car trip without intake We will give an additional dose of metoprolol succinate 50 mg p.o. x1 now, and then increase dosing from 50 mg p.o. daily to twice daily. Hold amlodipine and losartan. For now continue Terazosin due to significant issues with BPH, bladder outlet obstruction and bilateral hydronephrosis Present on Admission?: Yes (2) Palpitations: See above Present on Admission?: Yes (3) BPH w urinary obs/LUTS: BPH with urinary obstruction/LUTS/Marked bladder distention/bilateral hydroureteronephrosis- We will continue Terazosin 10 mg at bedtime. This does not appear to be a new issue, and since the patient is out of state, unless he develops more significant symptoms, it may be best addressed by his primary medical team Present on Admission?: Yes (4) GERD (gastroesophageal reflux disease): Continue omeprazole/pantoprazole Present on Admission?: Yes (5) Vitamin B12 deficiency: Continue B12 supplementation Present on Admission?: Yes (6) Depression: Continue fluoxetine Present on Admission?: Yes (7) Hydronephrosis due to obstruction of bladder: See above Present on Admission?: Yes (8) Pulmonary nodule 1 cm or greater in diameter: Right upper lobe 1.4 cm pulmonary nodule noted on CTA PE protocol. D-dimer was elevated at 4180, and CTA was negative for PE Recommendation from radiology is to repeat imaging in 3 months Present on Admission?: Yes (9) Hypertension: See above Present on Admission?: Yes (10) Alcohol use: Placed on AWSS protocol. No signs of active withdrawal at this time Present on Admission?: Yes History of Present Illness Chief Complaint: The patient presents to the emergency department due to concern regarding palpitations Primary Care Provider: TOM GAMBLE The patient is a 79-year-old male with a past medical history including hypertension, hyperlipidemia, vitamin B12 deficiency, depression, GERD, BPH with LUTS, status post CABG, atrial fibrillation post CABG requiring brief anticoagulation. He has traveled here from another state to visit his son who lives in the area, and has noted a sensation of palpitations in his chest. He does not have any associated shortness of breath or dyspnea on exertion, and denies any pain or change in usual swelling in legs. Allergies Allergy/AdvReac Type Severity Reaction Status Date / Time No Known Allergies Allergy Unverified 08/18/20 15:13 Home Medications Medication Instructions Recorded Confirmed Type amlodipine 10 mg PO DAILY 08/18/20 08/18/20 History aspirin [Aspirin Low Dose] 81 mg PO DAILY 08/18/20 08/18/20 History atorvastatin 40 mg PO QPM 08/18/20 08/18/20 History cholecalciferol (vitamin D3) 25 mcg PO DAILY 08/18/20 08/18/20 History [Vitamin D3] cyanocobalamin (vitamin B-12) 1,000 mcg PO DAILY 08/18/20 08/18/20 History [Vitamin B-12] fluoxetine 10 mg PO Q OTHER DAY 08/18/20 08/18/20 History losartan 100 mg PO DAILY 08/18/20 08/18/20 History metoprolol succinate 50 mg PO DAILY 08/18/20 08/18/20 History omeprazole 20 mg PO DAILY 08/18/20 08/18/20 History terazosin 10 mg PO DAILY 08/18/20 08/18/20 History Past Med/Surg History Medical History Atrial flutter Hypertension Ventricular tachycardia Surgical History History of left hip replacement Hx of CABG Social History (Updated 08/18/20 @ 14:03 by Brett R Kentrell, DO) Smoking Status: Never smoker Second Hand Exposure: No; Do You Dip or Chew Tobacco: No; Hx Alcohol Use: Yes Alcohol type: beer, wine and hard liquor Alcohol Intake Frequency: 4 or More x per/Week Hx Substance Use: No Preferred Language: Andorran Communication Ability: Effective [employer]er Required: No Beliefs That Will Affect Care: None Current Living Situation: Spouse Other Information That Helps Us Care for You: No Feels Safe at Home: Yes Safety Concerns: Feels Safe At This Time Assistive Devices: Glasses Review of Systems Review of Systems: The patient denies chest pain, shortness of breath, dyspnea on exertion, cough, sore throat, fevers, chills, sweats, nausea, vomiting, diarrhea , constipation, abdominal pain, pelvic pain, blood in urine or stool, dysuria, urinary frequency or urgency, lightheadedness, dizziness, headache, memory loss, loss of consciousness, rash, abnormal bruising or bleeding, imbalance, focal or generalized weakness, numbness or tingling in arms or legs, generalized arthralgias or myalgias, back or neck pain, or night sweats. The review of systems is otherwise negative other than for that already noted above, and at least 10 systems have been reviewed. Physical Exam Physical Exam: The patient is awake, alert and oriented 3, well developed and well nourished, normocephalic and atraumatic, lying in bed and in no acute distress. HEENT--PERRL, EOMI, mucous membranes and oropharynx normal. Neck--supple. No JVD. No bruits. Thyroid normal, trachea midline, no adenopathy. Heart--normal S1 and S2, extrasystoles. No murmurs, rubs or gallops. Lungs--clear bilaterally, no respiratory distress, no accessory muscle use. Abdomen--normal bowel sounds and soft. Nontender. Nondistended, no hernias or masses, no organomegaly. Extremities--no cyanosis or clubbing. Trace bilateral pretibial pitting edema. Dermatologic--normal skin turgor, normal color, no abnormal lymph nodes, no rash. Neurologic--cranial nerves II through XII grossly intact. Rheumatologic--normal range of motion. Psychiatric--normal affect. Results & Data Results & Data ([facility]) Vital Signs (Past 12 Hours) Vital Signs Temp Pulse Pulse Resp BP BP Pulse Ox 04/12/21 18:30 104 H 17 165/94 H 97 08/18/20 18:12 104 H 18 161/98 H 98 08/18/20 17:19 103 H 24 174/96 H 98 08/18/20 16:00 88 12 165/99 H 98 08/18/20 15:54 104 H 176/103 H 08/18/20 15:47 101 H 16 98 08/18/20 15:46 101 H 16 176/103 H 97 08/18/20 15:36 101 H 22 161/94 H 98 08/18/20 15:32 102 H 177/104 H 08/18/20 15:30 103 H 20 177/104 H 97 08/18/20 15:22 102 H 15 167/101 H 98 08/18/20 15:21 99 08/18/20 14:37 104 H 18 180/109 H 97 08/18/20 12:55 97.0 F L 101 H 20 166/84 H 99 Laboratory Results Laboratory Results WBC 6.28 K/uL (4.8-10.8) 08/18/20 14:20 RBC 4.35 M/uL (4.7-6.1) L 08/18/20 14:20 Hgb 13.9 g/dL (14.0-18.0) L 08/18/20 14:20 Hct 39.6 % (42-52) L 08/18/20 14:20 MCV 91.0 fL (80-100) 08/18/20 14:20 MCH 32.0 pg (25-34) 08/18/20 14:20 MCHC 35.1 g/dL (32-36) 08/18/20 14:20 RDW Std Deviation 47.5 fL (36.4-46.3) H 08/18/20 14:20 RDW Coeff of [place] 14.1 % (11.5-14.5) 08/18/20 14:20 Plt Count 171 K/uL (130-400) 08/18/20 14:20 MPV 11.5 fL (7.4-10.4) H 08/18/20 14:20 Immature Gran % (Auto) 0.3 % 08/18/20 14:20 Neut % (Auto) 59.5 % 08/18/20 14:20 Lymph % (Auto) 26.4 % 08/18/20 14:20 [place] % (Auto) 9.2 % 08/18/20 14:20 Eos % (Auto) 3.3 % 08/18/20 14:20 Baso % (Auto) 1.3 % 08/18/20 14:20 Neut # (Auto) 3.73 K/uL (1.4-6.5) 08/18/20 14:20 Lymph # (Auto) 1.66 K/uL (1.2-3.4) 08/18/20 14:20 [place] # (Auto) 0.58 K/uL (0.11-0.59) 08/18/20 14:20 Eos # (Auto) 0.21 K/uL (0-0.5) 08/18/20 14:20 Baso # (Auto) 0.08 K/uL (0-0.2) 08/18/20 14:20 Immature Gran # (Auto) 0.02 K/uL (0.00-0.02) 08/18/20 14:20 PT 11.1 Seconds (9.0-12.0) 08/18/20 14:20 INR 1.1 (0.9-1.1) 08/18/20 14:20 APTT 24.8 Seconds (21.0-31.0) 08/18/20 14:20 PTT Ratio 0.9 08/18/20 14:20 D-Dimer 4180 ug/L FEU (0-500) H* 08/18/20 14:20 Sodium 142 mmol/L (136-145) 08/18/20 14:20 Potassium 4.1 mmol/L (3.5-5.1) 08/18/20 14:20 Chloride 109 mmol/L (98-107) H 08/18/20 14:20 Carbon Dioxide 28 mmol/L (21-32) 08/18/20 14:20 Anion Gap 5.0 (3-11) 08/18/20 14:20 BUN 25 mg/dl (7-18) H 08/18/20 14:20 Creatinine 0.95 mg/dl (0.6-1.4) 08/18/20 14:20 Est Cr Clr Drug Dosing 73.6 ml/min 08/18/20 14:20 Est GFR ( Amer) 89.1 08/18/20 14:20 Est GFR (Non-Af Amer) 76.9 08/18/20 14:20 BUN/Creatinine Ratio 25.8 (10-20) H 08/18/20 14:20 Glucose 104 mg/dl (70-99) H 08/18/20 14:20 Calcium 9.3 mg/dl (8.5-10.1) 08/18/20 14:20 Magnesium 2.1 mg/dl (1.8-2.4) 08/18/20 14:20 Total Bilirubin 1.0 mg/dl (0.2-1) 08/18/20 14:20 AST 42 U/L (15-37) H 08/18/20 14:20 ALT 51 U/L (12-78) 08/18/20 14:20 Alkaline Phosphatase 82 U/L (45-117) 08/18/20 14:20 Troponin I < 0.015 ng/ml (0-0.045) 08/18/20 14:20 Total Protein 7.3 gm/dl (6.4-8.2) 08/18/20 14:20 Albumin 4.1 gm/dl (3.4-5.0) 08/18/20 14:20 Globulin 3.2 gm/dl (2.5-4.0) 08/18/20 14:20 Albumin/Globulin Ratio 1.3 (0.9-2) 08/18/20 14:20 TSH 2.950 uIu/ml (0.300-4.500) 08/18/20 14:20 Urine Color Yellow 08/18/20 14:40 Urine Appearance Clear (Clear) 08/18/20 14:40 Urine pH 7.0 (4.5-7.5) 08/18/20 14:40 Ur Specific [place] 1.009 (1.000-1.030) 08/18/20 14:40 Urine Protein Negative (Negative) 08/18/20 14:40 Urine Glucose (UA) Negative (Negative) 08/18/20 14:40 Urine Ketones Negative (Negative) 08/18/20 14:40 Urine Blood Negative (Negative) 08/18/20 14:40 Urine Nitrite Negative (Negative) 08/18/20 14:40 Urine Bilirubin Negative (Negative) 08/18/20 14:40 Urine Urobilinogen Negative (Negative) 08/18/20 14:40 Ur Leukocyte Esterase Negative (Negative) 08/18/20 14:40 COVID-19 Eval Order [facility]Rsv at [facility] 08/18/20 16:20 SARS-CoV-2 (PCR) NEGATIVE (Negative) 08/18/20 16:20 Influenza Type A (PCR) Negative (Neg) 08/18/20 16:20 Influenza Type B (PCR) Negative (Neg) 08/18/20 16:20 RSV (RT-PCR) Negative (Neg) 08/18/20 16:20 Impressions Chest X-Ray 08/18/20 13:59 XR chest 1V portable HISTORY: weakness COMPARISON: None. FINDINGS: No focal lung consolidations to suggest pneumonia. No evidence for pulmonary edema. The cardiac silhouette is mildly enlarged. There are poststernotomy changes. No pleural effusions. No pneumothorax. IMPRESSION: Mild cardiomegaly. Otherwise, no acute process within the chest. ACT 112: Negative or not required by law. Electronically signed by: Castro Brunner M.D. 08/18/2020 2:26 PM Chest CTA 08/18/20 16:20 CT ANGIOGRAM OF THE CHEST CLINICAL HISTORY: Dyspnea. COMPARISON STUDY: Chest x-ray dated 08/18/2020. TECHNIQUE: Following the IV administration of 119 cc of Optiray 320, CT angiogram of the chest was performed from the upper abdomen to the thoracic inlet utilizing the pulmonary embolus protocol. Images are reviewed in the axial, sagittal, and coronal planes. 3-D MIPS images are created and assessed. IV contrast was administered without complication. A dose lowering technique was utilized adhering to the principles of ALARA. CT DOSE: 517.65 mGycm FINDINGS: Thyroid: Normal in size and heterogeneous in attenuation. Thoracic aorta: There is atherosclerotic calcification of the thoracic aorta, which is normal in caliber and demonstrates standard 3-vessel arch anatomy. No dissection is seen. Pulmonary vasculature: The pulmonary trunk is normal in caliber. There are no filling defects identified in main, lobar, or segmental pulmonary branches to suggest pulmonary embolus. Heart: The patient is status post midline sternotomy. The heart is enlarged and without pericardial effusion. The coronary arteries are densely calcified. Epicardial pacing leads are noted. Lungs and pleural spaces: Evaluation of the lung parenchyma is degraded by motion artifact. Emphysematous change is noted. There is bibasilar scarring/atelectasis. No airspace consolidation is seen typical for pneumonia and there is no pleural effusion. Scattered calcified granulomas are noted. There is a 1.4 cm irregular pleural-based density in the right apex seen on image #256. There is minimal low suspicion nodularity along the right major fissure seen on image #137. Mediastinum: There is no mediastinal lymphadenopathy. Zari: Clear. Axillae: There is no axillary lymphadenopathy. Upper abdomen: There is trace perihepatic ascites. Soft tissue infiltration is suggested in the left upper quadrant. Question foci of venous gas within the le ft upper quadrant along the greater curvature of the stomach (axial image #9). Skeletal structures: No lytic or blastic bony lesions are seen. IMPRESSION: 1. There is no evidence of pulmonary embolus in the main, lobar, or segmental pulmonary arteries. 2. Cardiomegaly and emphysema. 3. There is trace perihepatic ascites, with inflammatory change suggested in the left upper quadrant. Question foci of intravenous gas in the upper abdomen. These findings are nonspecific and not well assessed on this examination, but raise concern for intra-abdominal pathology. Consider dedicated CT of the abdomen for further assessment. 4. There is no airspace consolidation or pleural effusion. 5. There is a 1.4 cm indeterminant focus of pleural-based nodularity in the right upper lobe. This may represent scarring/fibrosis. A 3 month follow-up chest CT is recommended for reassessment. 6. Additional findings as above. ACT 112: Negative or not required by law. Electronically signed by: Gustavo Hudson M.D. 08/18/2020 5:41 PM Abdomen/Pelvis CT 08/18/20 17:48 CT SCAN OF THE ABDOMEN AND PELVIS WITHOUT IV CONTRAST CLINICAL HISTORY: Abnormal chest CT. Abdominal ascites. COMPARISON STUDY: Chest CT dated 08/18/2020. TECHNIQUE: CT scan of the abdomen and pelvis is performed from the lung bases to the proximal femora. Images are reviewed in the axial, sagittal, and coronal planes. IV contrast was not administered for this examination. A dose lowering technique was utilized adhering to the principles of ALARA. Examination is degraded by motion artifact. CT DOSE: 568.31 mGy.cm FINDINGS: Lung bases: The heart is mildly enlarged and without pericardial effusion. Epicardial pacing leads are noted. There is bibasilar scarring/atelectasis. There are scattered calcified granulomas. No airspace consolidation or pleural effusion is identified. Liver: The unenhanced liver is normal in size, contour, and attenuation. There is no intrahepatic biliary ductal dilatation. Gallbladder: Unremarkable. Spleen: Normal in size and attenuation. Pancreas: Unremarkable. Adrenal glands: Unremarkable. Kidneys: The unenhanced kidneys demonstrate cortical atrophy. There is mild to moderate bilateral hydroureteronephrosis, likely secondary to marked bladder distention. The renal collecting systems and ureters are filled with excreted IV contrast. There is no evidence of urothelial lesion or contour deforming mass lesion. A 2.3 cm cyst is noted in the left kidney. Abdominal vasculature: The abdominal aorta is normal in course and caliber noting advanced atherosclerotic calcification. Bowel: There is no bowel obstruction. Mild fecal retention is noted throughout the colon. The appendix is not visualized. Peritoneum: There is trace perihepatic ascites. Mild edematous changes noted throughout the mesentery. No intraperitoneal free air is seen. No venous gas is seen in the upper abdomen. Lymphadenopathy: None. Pelvic viscera: Evaluation of the pelvis is degraded by streak artifact from a left hip arthroplasty. The bladder is markedly distended and filled with excreted IV contrast. The bladder wall appears thickened and trabeculated indicating chronic outlet obstruction. The prostate gland is significantly enlarged noting median lobe hypertrophy. Skeletal structures: The skeletal structures are osteopenic. There is moderate to advanced lumbosacral spondylosis. No lytic or blastic lesions are seen. A left hip arthroplasty is in place. Soft tissues: There is body wall edema. IMPRESSION: 1. Motion compromised examination. 2. Prostatomegaly with evidence of chronic bladder outlet obstruction. 3. There is mild to moderate bilateral hydroureteronephrosis, likely secondary to marked bladder distention. 4. There is trace perihepatic ascites, mesenteric edema, and body wall edema. These findings suggest fluid overload. 5. No venous gas is seen in the upper abdomen. The finding of concern by chest CT likely corresponded to partially imaged bowel. 6. Additional findings as above. ACT 112: Negative or not required by law. Electronically signed by: Gustavo Hudson M.D. 08/18/2020 6:50 PM Code Status & VTE Plan Code Status Full code VTE Prophylaxis Plan VTE Prophylaxis will be ordered: Yes PG Care Time/CCT Total # of Minutes Spent Total Time Spent with Patient: Total time spent is greater than 50% in coordination of care (as documented) at patient's floor/unit and/or counseling patient: Coding Level of Care Code 43802 Initial Inpt Care Lvl 3 Diagnoses Intermittent atrial flutter I48.92 Palpitations R00.2 BPH w urinary obs/LUTS N40.1; N13.8 GERD (gastroesophageal reflux disease) K21.9 Vitamin B12 deficiency E53.8 Depression F32.9 Hydronephrosis due to obstruction of bladder N13.30; N32.0 Pulmonary nodule 1 cm or greater in diameter R91.1 Hypertension I10 Alcohol use Z72.89
[2020-08-18] MEDS ORDERED: ENOXAPARIN 1 MG/KG SQ SCH (20:30)
[2020-08-18] MEDS ORDERED: ONDANSETRON INJ 2 MG/ML 2 ML VIAL IV PRN (22:18)
[2020-08-18] MEDS ORDERED: ACETAMINOPHEN 325 MG TAB PO PRN (22:18)
[2020-08-18] MEDS ORDERED: METOPROLOL TARTRATE 1 MG/ML VIAL IV PRN (22:18)
[2020-08-18] MEDS: FOLIC ACID 1 MG TAB PO SCH (22:40)
[2020-08-18] MEDS: PIPERACILLIN/TAZOBACTAM 3.375 GM in DEXTROSE 5% 100 ML IV SCH (22:40)
[2020-08-18] MEDS: THIAMINE HCL 100 MG TAB PO SCH (22:40)
[2020-08-18] MEDS: ENOXAPARIN 100 MG/1ML SYR SQ SCH (22:45)
[2020-08-18] MEDS: NSS + 20MEQ KCL 20 MEQ/1,000 ML BAG IV SCH (23:17)
[2020-08-18] MEDS: ATORVASTATIN 40 MG TAB PO SCH (23:17)
[2020-08-18] MEDS: METOPROLOL SUCC 50MG EXT REL TAB PO SCH (23:57)
[2020-08-19] MEDS: PIPERACILLIN/TAZOBACTAM 3.375 GM in DEXTROSE 5% 100 ML IV SCH ×3 (05:46→21:37)
--- NOTE | 2020-08-19 06:07 | Electrocardiogram Report ---
Test Reason : Blood Pressure : / mmHG Vent. Rate : 101 BPM Atrial Rate : 101 BPM P-R Int : 184 ms QRS Dur : 098 ms QT Int : 352 ms P-R-T Axes : 091 -25 078 degrees QTc Int : 456 ms Possible Atrial flutter with 2 to 1 block Incomplete right bundle branch block Nonspecific ST and T wave abnormality Abnormal ECG No previous ECGs available Confirmed by Paulo Howard ([id number]) on 08/19/2020 6:07:46 AM Referred By: Confirmed By:Paulo Howard
--- NOTE | 2020-08-19 06:16 | Electrocardiogram Report ---
Test Reason : Blood Pressure : / mmHG Vent. Rate : 101 BPM Atrial Rate : 101 BPM P-R Int : 162 ms QRS Dur : 098 ms QT Int : 358 ms P-R-T Axes : 081 -26 063 degrees QTc Int : 464 ms Possible Atrial flutter Incomplete right bundle branch block Nonspecific ST abnormality Abnormal ECG When compared with ECG of 18-AUG-2020 12:59, No significant change was found Confirmed by Paulo Howard ([id number]) on 08/19/2020 6:15:38 AM Also confirmed by Paulo Howard ([email or web address]), Jaime De La O ([id number]) on 08/19/2020 10:36:29 AM Also confirmed by Paulo Howard ([id number]), editorial clerk Jaime Yepez ([id number]) on 08/19/2020 10:40:57 AM Referred By: REFERRED SELF Confirmed By:Paulo Howard
[2020-08-19 06:24] LABS: Basophils # (auto) 0.07 K/uL (0-0.2); Basophils % (auto) 1.1 %; Eosinophils # (auto) 0.25 K/uL (0-0.5); Eosinophils % (auto) 3.9 %; Hematocrit (blood only) 39.5 % (42-52); Hemoglobin 13.5 g/dL (14.0-18.0); Immature Granulocytes # (auto) 0.01 K/uL (0.00-0.02); Immature Granulocytes % (auto) 0.2 %; Lymphocytes # (auto) 1.56 K/uL (1.2-3.4); Lymphocytes % (auto) 24.1 %; Mean Corpuscular Hemoglobin 31.2 pg (25-34); Mean Corpuscular Hgb Conc 34.2 g/dL (32-36); Mean Corpuscular Volume 91.2 fL (80-100); Mean Platelet Volume 10.8 fL (7.4-10.4); Monocytes # (auto) 0.52 K/uL (0.11-0.59); Neutrophils # (auto) 4.06 K/uL (1.4-6.5); Neutrophils % (auto) 62.7 %; Platelet Count 153 K/uL (130-400); RDW Coefficient of Variation 13.8 % (11.5-14.5); RDW Standard Deviation 46.8 fL (36.4-46.3); Red Blood Count 4.33 M/uL (4.7-6.1); White Blood Count 6.47 K/uL (4.8-10.8)
[2020-08-19 06:51] LABS: Albumin Level 3.5 gm/dl (3.4-5.0); BUN Creatinine Ratio 18.3 (10-20); Calcium 8.9 mg/dl (8.5-10.1); Creatinine Clr Calc Pharmacy 71.5 ml/min; Est GFR (African American) 89.1; Est GFR (Non-African American) 76.9; Potassium 3.9 mmol/L (3.5-5.1)
[2020-08-19 06:56] LABS: Albumin Globulin Ratio 1.2 (0.9-2); Bilirubin,Total 1.3 mg/dl (0.2-1); Total Protein 6.5 gm/dl (6.4-8.2); Troponin I 0.018 ng/ml (0-0.045)
--- NOTE | 2020-08-19 08:13 | Cardiology Consultation ---
Date of Consultation August 19, 2020 Assessment & Plan (1) Atrial flutter: (2) CAD (coronary artery disease): (3) Hx of CABG: (4) Alcohol use: (5) Hypertension: (6) Mitral regurgitation: ASSESSMENT/PLAN: 1. Atrial flutter: History of atrial flutter following CABG. Not significantly symptomatic currently. Was more symptomatic with faster heart rates but while hospitalized on increased beta-adan, asymptomatic in bed. Decreased exercise tolerance over the past few days would likely indicate that this episode of atrial flutter began more than 48 hours ago. Given that he is having issues with bradycardia overnight with pauses nearly 4 seconds, would recommend cardioversion to try to regain sinus rhythm. Reduce metoprolol succinate to home dose in anticipation of restoring sinus rhythm tomorrow and resting heart rates in sinus in the 40s to 50s per his report. Recommend transesophageal echo to evaluate for left atrial appendage thrombus. Continue anticoagulation for stroke risk reduction. Would recommend Eliquis or Xarelto on discharge. Risks and benefits of transesophageal echo and cardioversion were discussed with him in detail. He was agreeable. Unable to perform these studies today as he ate a full breakfast. We also discussed other treatment options such as attempt at rate control, however bradycardia as above, ablation, or pacemaker placement to allow for more aggressive rate-controlling medications. He is agreeable for transesophageal echo and cardioversion tomorrow. 2. CAD s/p CABG x 4: No angina. Reportedly 1 graft was noted to be occluded at some point following CABG. On aspirin. Continue high-intensity statin therapy and beta-adan. 3. Alcohol use: We discussed the fact that alcohol can predispose people to atrial arrhythmia. Would try to cut back or refrain from alcohol. 4. Hypertension: Blood pressure elevated. Takes losartan and amlodipine at home. Recommend resuming home antihypertensive regimen. 5. Mitral regurgitation: Non severe. Can be followed as an outpatient. 6. Disposition: Cardiology will continue to follow. Plan of care discussed with Dr. Ying of the primary hospitalist service. Thank you for allowing me to participate in the care of your patient. Please call for any other questions or concerns. Sincerely, Steve Howard M.D. History of Present Illness Reason for Consultation: Atrial flutter Requesting Physician: Dr. Dasilva Attending Physician: Willian Ying, DO History of Present Illness Dr. Montemayor is a very pleasant 79-year-old gentleman with a history significant for multivessel CAD s/p CABG x 4 (2012 [facility]), nonsustained ventricular t achycardia, hypertension, dyslipidemia, stroke, and prior atrial flutter s/p cardioversion shortly after CABG. He lives in [place] and is visiting his son this week at [place]. While sitting on the sofa drinking a cup of coffee, he felt his heart beating faster. He could hear his heartbeat and checked his pulse. This was approximately 10:00 a.m. on 08/18/2020. He presented to the emergency department for evaluation and was noted to be in atrial flutter with heart rate in the low 100s. He recalls having atrial flutter shortly after CABG in 2012 and underwent cardioversion. At that time, he was more symptomatic with palpitations. A few years later, he had a Holter monitor done for palpitations and was noted to have nonsustained ventricular tachycardia (1 episode). He was seen by electrophysiology who was told that it was benign and nothing to worry about. He did undergo cardiac catheterization however and it was noted that 1 of his bypass grafts had occluded while the other 3 were patent. He had another Holter monitor done a few years ago for palpitations and was noted to have sinus rhythm with ectopy. There has not been any other documented atrial flutter until this hospitalization. While here, he received IV metoprolol. He takes metoprolol succinate 50 mg at home. This was increased to b.i.d. here. Overnight, his heart rate decreased to the 30s at times and he had a 3.8 second pause at 2:17 a.m.. He is completely asymptomatic in regards to his atrial flutter at the time of our visit this morning despite remaining in atrial flutter. He exercises regularly. He enjoys cross-country skiing, power walking approximately 1.5 miles twice per day, and also biking. He has noted the past few days that his exercise tolerance has decreased. He denies chest pain, shortness of breath, syncope, near-syncope, or worsening edema. He denies melena, hematochezia, or hematuria. He had followed with Cardiology at [facility] (Dr. Raghu Preston i [phone]), but has not seen him in a few years. He denies any recent nausea, vomiting, diarrhea, or other illness. He states that his resting heart rate while in sinus rhythm is typically 45-50 and therefore he has not had his home beta-adan increased from his usual 50 mg daily. Review of systems: As above. Review of systems otherwise negative/unremarkable. Family history: 2 uncles with CAD. Mother with CHF. Social history: He denies smoking. He consumes 1 to 3 alcoholic beverages per day. No drugs. Lives at home with his , Samara. He has 2 sons. Three grandchildren. He resides in [place]. 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 He was unaccompanied. Allergies Allergy/AdvReac Type Severity Reaction Status Date / Time No Known Allergies Allergy Unverified 08/18/20 15:13 Home Medications Medication Instructions Recorded Confirmed Type amlodipine 10 mg PO DAILY 08/18/20 08/18/20 History aspirin [Aspirin Low Dose] 81 mg PO DAILY 08/18/20 08/18/20 History atorvastatin 40 mg PO QPM 08/18/20 08/18/20 History cholecalciferol (vitamin D3) 25 mcg PO DAILY 08/18/20 08/18/20 History [Vitamin D3] cyanocobalamin (vitamin B-12) 1,000 mcg PO DAILY 08/18/20 08/18/20 History [Vitamin B-12] fluoxetine 10 mg PO Q OTHER DAY 08/18/20 08/18/20 History losartan 100 mg PO DAILY 08/18/20 08/18/20 History metoprolol succinate 50 mg PO DAILY 08/18/20 08/18/20 History omeprazole 20 mg PO DAILY 08/18/20 08/18/20 History terazosin 10 mg PO DAILY 08/18/20 08/18/20 History Patient History Medical History (Updated 08/19/20 @ 14:24 by Paulo Howard MD) Atrial flutter BPH w urinary obs/LUTS CAD (coronary artery disease) Depression Dyslipidemia GERD (gastroesophageal reflux disease) Hypertension NSVT (nonsustained ventricular tachycardia) Stroke Vitamin B12 deficiency Surgical History (Updated 08/19/20 @ 14:23 by Paulo Howard MD) History of left hip replacement Hx of CABG Social History (Updated 08/18/20 @ 14:03 by Brett Pfeiffer DO) Smoking Status: Never smoker Second Hand Exposure: No; Do You Dip or Chew Tobacco: No; Hx Alcohol Use: Yes Alcohol type: beer, wine and hard liquor Alcohol Intake Frequency: 4 or More x per/Week Hx Substance Use: No Preferred Language: Uzbek Communication Ability: Effective Drag Out Man Required: No Beliefs That Will Affect Care: None Current Living Situation: Spouse Other Information That Helps Us Care for You: No Feels Safe at Home: Yes Safety Concerns: Feels Safe At This Time Assistive Devices: None Physical Exam Physical Exam: Gen.: No acute distress. Alert and oriented. HEENT: Anicteric sclera. Neck: No JVD. No bruits. Normal carotid upstrokes bilaterally. Cardiac: PMI was nondisplaced. No ventricular heave. Irregularly irregular. Normal S1-S2. No murmurs, rubs, or gallops. Pulmonary: Clear to auscultation bilaterally without wheezes, rales, or rhonchi. Abdomen: Soft, nontender, nondistended, with normoactive bowel sounds. No bruits noted. Extremities: 2+ radial pulses bilaterally. 2+ posterior tibialis pulses bilaterally. No edema or cyanosis. Varicose veins right lower extremity. Psychiatric: Affect appears appropriate. Results & Data ([facility]) Vital Signs (Past 12 Hours) Vital Signs Temp Pulse Pulse Resp BP BP Pulse Ox 08/19/20 07:06 36.8 C 89 16 154/84 H 99 08/19/20 03:26 36.6 C 70 19 136/76 97 08/19/20 00:31 55 L 08/18/20 23:33 36.8 C 51 L 18 144/66 H 97 08/18/20 23:13 80 08/18/20 21:56 36.8 C 75 18 154/92 H 96 08/18/20 21:00 58 L 16 144/71 H 95 08/18/20 20:30 70 15 138/77 96 Laboratory Results Laboratory Results - last 24 hr 08/18/20 08/18/20 08/18/20 14:20 14:20 14:20 WBC 6.28 RBC 4.35 L Hgb 13.9 L Hct 39.6 L MCV 91.0 MCH 32.0 MCHC 35.1 RDW Std Deviation 47.5 H RDW Coeff of Gila 14.1 Plt Count 171 MPV 11.5 H Immature Gran % (Auto) 0.3 Neut % (Auto) 59.5 Lymph % (Auto) 26.4 Archuleta % (Auto) 9.2 Eos % (Auto) 3.3 Baso % (Auto) 1.3 Neut # (Auto) 3.73 Lymph # (Auto) 1.66 Archuleta # (Auto) 0.58 Eos # (Auto) 0.21 Baso # (Auto) 0.08 Immature Gran # (Auto) 0.02 PT 11.1 INR 1.1 APTT 24.8 PTT Ratio 0.9 D-Dimer Sodium 142 Potassium 4.1 Chloride 109 H Carbon Dioxide 28 Anion Gap 5.0 BUN 25 H Creatinine 0.95 Est Cr Clr Drug Dosing 73.6 Est GFR ( Amer) 89.1 Est GFR (Non-Af Amer) 76.9 BUN/Creatinine Ratio 25.8 H Glucose 104 H Calcium 9.3 Magnesium 2.1 Total Bilirubin 1.0 AST 42 H ALT 51 Alkaline Phosphatase 82 Troponin I < 0.015 Total Protein 7.3 Albumin 4.1 Globulin 3.2 Albumin/Globulin Ratio 1.3 TSH 2.950 Urine Color Urine Appearance Urine pH Ur Specific Mcroberts Urine Protein Urine Glucose (UA) Urine Ketones Urine Blood Urine Nitrite Urine Bilirubin Urine Urobilinogen Ur Leukocyte Esterase COVID-19 Eval Order SARS-CoV-2 (PCR) Influenza Type A (PCR) Influenza Type B (PCR) RSV (RT-PCR) 08/18/20 08/18/20 08/18/20 14:20 14:40 16:20 WBC RBC Hgb Hct MCV MCH MCHC RDW Std Deviation RDW Coeff of Gila Plt Count MPV Immature Gran % (Auto) Neut % (Auto) Lymph % (Auto) Archuleta % (Auto) Eos % (Auto) Baso % (Auto) Neut # (Auto) Lymph # (Auto) Archuleta # (Auto) Eos # (Auto) Baso # (Auto) Immature Gran # (Auto) PT INR APTT PTT Ratio D-Dimer 4180 H* Sodium Potassium Chloride Carbon Dioxide Anion Gap BUN Creatinine Est Cr Clr Drug Dosing Est GFR ( Amer) Est GFR (Non-Af Amer) BUN/Creatinine Ratio Glucose Calcium Magnesium Total Bilirubin AST ALT Alkaline Phosphatase Troponin I Total Protein Albumin Globulin Albumin/Globulin Ratio TSH Urine Color Yellow Urine Appearance Clear Urine pH 7.0 Ur Specific Mcroberts 1.009 Urine Protein Negative Urine Glucose (UA) Negative Urine Ketones Negative Urine Blood Negative Urine Nitrite Negative Urine Bilirubin Negative Urine Urobilinogen Negative Ur Leukocyte Esterase Negative COVID-19 Eval Order CovFluRsv at [facility] SARS-CoV-2 (PCR) Influenza Type A (PCR) Influenza Type B (PCR) RSV (RT-PCR) 08/18/20 08/19/20 08/19/20 16:20 06:07 06:07 WBC 6.47 RBC 4.33 L Hgb 13.5 L Hct 39.5 L MCV 91.2 MCH 31.2 MCHC 34.2 RDW Std Deviation 46.8 H RDW Coeff of Gila 13.8 Plt Count 153 MPV 10.8 H Immature Gran % (Auto) 0.2 Neut % (Auto) 62.7 Lymph % (Auto) 24.1 Archuleta % (Auto) 8.0 Eos % (Auto) 3.9 Baso % (Auto) 1.1 Neut # (Auto) 4.06 Lymph # (Auto) 1.56 Archuleta # (Auto) 0.52 Eos # (Auto) 0.25 Baso # (Auto) 0.07 Immature Gran # (Auto) 0.01 PT INR APTT PTT Ratio D-Dimer Sodium 142 Potassium 3.9 Chloride 109 H Carbon Dioxide 29 Anion Gap 4.0 BUN 17 Creatinine 0.95 Est Cr Clr Drug Dosing 71.5 Est GFR ( Amer) 89.1 Est GFR (Non-Af Amer) 76.9 BUN/Creatinine Ratio 18.3 Glucose 102 H Calcium 8.9 Magnesium 2.0 Total Bilirubin 1.3 H AST 36 ALT 41 Alkaline Phosphatase 74 Troponin I 0.018 Total Protein 6.5 Albumin 3.5 Globulin 3.0 Albumin/Globulin Ratio 1.2 TSH Urine Color Urine Appearance Urine pH Ur Specific Mcroberts Urine Protein Urine Glucose (UA) Urine Ketones Urine Blood Urine Nitrite Urine Bilirubin Urine Urobilinogen Ur Leukocyte Esterase COVID-19 Eval Order SARS-CoV-2 (PCR) NEGATIVE Influenza Type A (PCR) Negative Influenza Type B (PCR) Negative RSV (RT-PCR) Negative 08/19/20 12:34 WBC RBC Hgb Hct MCV MCH MCHC RDW Std Deviation RDW Coeff of Gila Plt Count MPV Immature Gran % (Auto) Neut % (Auto) Lymph % (Auto) Archuleta % (Auto) Eos % (Auto) Baso % (Auto) Neut # (Auto) Lymph # (Auto) Archuleta # (Auto) Eos # (Auto) Baso # (Auto) Immature Gran # (Auto) PT INR APTT PTT Ratio D-Dimer Sodium Potassium Chloride Carbon Dioxide Anion Gap BUN Creatinine Est Cr Clr Drug Dosing Est GFR ( Amer) Est GFR (Non-Af Amer) BUN/Creatinine Ratio Glucose Calcium Magnesium Total Bilirubin AST ALT Alkaline Phosphatase Troponin I 0.027 Total Protein Albumin Globulin Albumin/Globulin Ratio TSH Urine Color Urine Appearance Urine pH Ur Specific Mcroberts Urine Protein Urine Glucose (UA) Urine Ketones Urine Blood Urine Nitrite Urine Bilirubin Urine Urobilinogen Ur Leukocyte Esterase COVID-19 Eval Order SARS-CoV-2 (PCR) Influenza Type A (PCR) Influenza Type B (PCR) RSV (RT-PCR) Diagnostic Findings Echo reviewed from 08/19/2020: Mildly dilated LV with normal systolic function. EF 55-60%. Normal wall motion. Moderate LVH. Mildly dilated RV with mildly reduced systolic function. Mild right atrial dilation. Mild to moderate MR. RVSP 41. Telemetry personally reviewed: Atrial flutter. At times tachycardic. At times bradycardic. Longest pause was 3.8 seconds at 2:17 a.m.. ECGs personally reviewed: ECG 08/18/2020 at 3:21 p.m.: Atrial flutter 101 beats per minute. Nonspecific ST abnormality. ECG 08/18/2020 at 12:59 p.m.: Atrial flutter 101 beats per minute. Nonspecific ST/T-wave abnormality. ECG 08/19/2020: Atrial flutter 73 beats per minute. Possible inferior infarct. Chest CTA 08/18/2020: No PE. Emphysema. Trace perihepatic ascites. No airspace consolidation. 1.4 cm indeterminate focus pleural-based nodularity in the right upper lobe. Three month follow-up CT recommended by radiology. CT abdomen/pelvis 08/18/2020: chronic bladder outlet obstruction. Mild to moderate bilateral hydroureteronephrosis, likely due to marked bladder distension per Radiology. Trace perihepatic ascites, mesenteric edema, and body wall edema. Medications Administered Current Inpatient Medications Acetaminophen (Acetaminophen 325 Mg Tab) 650 mg PO Q4H PRN PRN Reason: Pain or Fever Stop: 09/17/20 22:17 Aspirin (Aspirin 81 Mg Ectab) 81 mg PO DAILY [facility] Stop: 09/18/20 08:59 Last Admin: 08/19/20 09:03 Dose: 81 mg Documented by: Atorvastatin Calcium (Atorvastatin 40 Mg Tab) 40 mg PO QPM [facility] Stop: 09/17/20 22:17 Last Admin: 08/18/20 23:17 Dose: 40 mg Documented by: Cyanocobalamin (Cyanocobalamin 500 Mcg Tablet (Vitamin B-12)) 1,000 mcg PO DAILY [facility] Stop: 09/18/20 08:59 Last Admin: 08/19/20 09:02 Dose: 1,000 mcg Documented by: Enoxaparin Sodium (Enoxaparin 100 Mg/1ml Syr) 90 mg SQ Q12 [facility] Stop: 09/18/20 20:59 Fluoxetine HCl (Fluoxetine Hcl 10 Mg Cap) 10 mg PO Q2D@0900 [facility] Stop: 09/19/20 08:59 Folic Acid (Folic Acid 1 Mg Tab) 1 mg PO QAM [facility] Stop: 09/17/20 08:59 Last Admin: 08/19/20 09:03 Dose: 1 mg Documented by: Lorazepam (Ativan) 1 mg in 2 mls @ 2 mls/min IV UD PRN; Protocol PRN Reason: EtOH Withdrawl AWSS Score 6,7 Stop: 09/17/20 20:24 Lorazepam (Ativan) 2 mg in 4 mls @ 4 mls/min IV UD PRN; Protocol PRN Reason: EtOH Withdrawl AWSS Score 8,9 Stop: 09/17/20 20:24 Lorazepam (Ativan) 3 mg in 6 mls @ 4 mls/min IV ONCE PRN; Protocol PRN Reason: EtOH Withdrawl AWSS Score >=10 Stop: 09/17/20 20:24 Piperacillin Sod/Tazobactam (Sod 3.375 gm/ Dextrose) 115 mls @ 28.75 mls/hr IV Q8H [facility]; Protocol Stop: 08/28/20 21:59 Last Admin: 08/19/20 13:58 Dose: 28.8 mls/hr Documented by: Potassium Chloride/Sodium Chloride (Normal Saline W/20 Meq Kcl) 20 meq in 1,000 mls @ 60 mls/hr IV .[id number] [facility] Stop: 09/17/20 22:17 Last Admin: 08/19/20 14:00 Dose: 60 mls/hr Documented by: Metoprolol Succinate (Metoprolol Succ 50mg Ext Rel Tab) 50 mg PO BID [facility] Stop: 09/17/20 22:17 Last Admin: 08/19/20 09:02 Dose: 50 mg Documented by: Metoprolol Tartrate (Metoprolol Tartrate 1 Mg/Ml Vial) 5 mg IV Q4 PRN PRN Reason: Tachycardia Stop: 09/17/20 22:17 Ondansetron HCl (Ondansetron Inj 2 Mg/Ml 2 Ml Vial) 4 mg IV Q6H PRN PRN Reason: Nausea Stop: 09/17/20 22:17 Pantoprazole Sodium (Pantoprazole 40 Mg Tab) 40 mg PO DAILY [facility] Stop: 09/18/20 08:59 Last Admin: 08/19/20 09:02 Dose: 40 mg Documented by: Terazosin HCl (Terazosin Hcl 5 Mg Cap) 10 mg PO DAILY [facility] Stop: 09/18/20 08:59 Last Admin: 08/19/20 09:02 Dose: 10 mg Documented by: Thiamine HCl (Thiamine Hcl 100 Mg Tab) 100 mg PO QAM [facility] Stop: 09/17/20 08:59 Last Admin: 08/19/20 09:03 Dose: 100 mg Documented by: Vitamin D (Cholecalciferol 1,000 Units 25 Mcg Tab) 1,000 units PO DAILY [facility] Stop: 09/18/20 08:59 Last Admin: 08/19/20 09:02 Dose: 1,000 units Documented by: PG Care Time/CCT Total # of Minutes Spent Total Time Spent with Patient: Total time spent is greater than 50% in coordination of care (as documented) at patient's floor/unit and/or counseling patient: Coding Level of Care Code 01021 Initial Inpt Care Lvl 3 Diagnoses Atrial flutter I48.92 Atrial flutter type: unspecified CAD (coronary artery disease) I25.10 Hx of CABG Z95.1 Alcohol use Z72.89 Hypertension I10 Mitral regurgitation I34.0 (1) Atrial flutter Atrial flutter type: unspecified Qualified Code(s): I48.92 - Unspecified atrial flutter
[2020-08-19] MEDS: TERAZOSIN HCL 5 MG CAP PO SCH (09:02)
[2020-08-19] MEDS: CYANOCOBALAMIN 500 MCG TABLET (VITAMIN B-12) PO SCH (09:02)
[2020-08-19] MEDS: METOPROLOL SUCC 50MG EXT REL TAB PO SCH (09:02)
[2020-08-19] MEDS: PANTOprazole 40 MG TAB PO SCH (09:02)
[2020-08-19] MEDS: CHOLECALCIFEROL 1,000 UNITS 25 MCG TAB PO SCH (09:02)
[2020-08-19] MEDS: ENOXAPARIN 100 MG/1ML SYR SQ SCH ×2 (09:03→21:36)
[2020-08-19] MEDS: ASPIRIN 81 MG ECTAB PO SCH (09:03)
[2020-08-19] MEDS: THIAMINE HCL 100 MG TAB PO SCH (09:03)
[2020-08-19] MEDS: FOLIC ACID 1 MG TAB PO SCH (09:03)
--- NOTE | 2020-08-19 10:21 | XCELERA ---
[id number]
[2020-08-19] MEDS: NSS + 20MEQ KCL 20 MEQ/1,000 ML BAG IV SCH (14:00)
[2020-08-19] MEDS ORDERED: amLODIPine BESYLATE 5 MG TAB PO ONE (14:30)
--- NOTE | 2020-08-19 15:11 | Hospitalist Progress Note ---
Date of Service August 19, 2020 Assessment & Plan (1) Atrial flutter: Cardiology consulted and patient seen Continue Lovenox 90 mg SQ every 12 hours for anticoagulation while in atrial flutter Rate controlled Continue metoprolol succinate 50 mg p.o. daily Scheduled for [facility] with cardioversion tomorrow Continue on telemetry (2) Alcohol use: Daily consumption of 1-2 drinks for many years No evidence of withdrawal Continue thiamine 100 mg p.o. daily and folic acid 1 mg p.o. daily Patient lives in [place] Continue to follow closely and look for evidence of withdrawal (3) BPH w urinary obs/LUTS: Continue Terazosin No indication for Díaz catheter at this time Patient urinating well per his report (4) CAD (coronary artery disease): History of PCI with stenting Patient denies chest pain at this time Continue metoprolol, aspirin, and atorvastatin (5) Pulmonary nodule 1 cm or greater in diameter: Outpatient surveillance per Fleischner criteria (6) Hydronephrosis due to obstruction of bladder: No significant pain No hematuria Continue Terazosin (7) Depression: No emotional lability Continue Prozac 10 mg p.o. daily (8) Dyslipidemia: Continue atorvastatin 40 mg p.o. daily (9) DVT prophylaxis: Continue enoxaparin while in atrial flutter Increase activity as tolerated Admission and Anticipated Discharge Date Admission Date: August 18, 2020 Subjective Attending: Dr. Ying Patient seen and examined at bedside. He is feeling better. He is still in atrial fibrillation/flutter but is rate controlled in the 60s. He has no chest pain or tightness. Potassium, magnesium, and TSH are all within normal limits. No other acute complaints other than general feelings of malaise. Review of Systems Review of Systems: All systems reviewed & are unremarkable except as noted in Subjective Physical Exam Physical Exam: GENERAL : No acute distress EYES: No icterus, gaze conjugate. Pupils equal round and reactive to light NOSE: No evidence of epistaxis MOUTH: No lesions or candidiasis NECK: Supple LUNGS: CTA B/L, no wheezes, rales or rhonchi HEART: Irregular, irregular, rate controlled in the 60s ABDOMEN: Soft, NT, ND, BS Present EXTREMITIES: No LE edema, pedal pulses intact NEURO: A&OX3 Results & Data Results & Data ([facility]) Vital Signs (Past 12 Hours) Vital Signs Temp Pulse Pulse Resp BP Pulse Ox 04/13/21 11:08 36.9 C 60 17 151/71 H 96 08/19/20 09:04 72 08/19/20 07:55 53 L 08/19/20 07:06 36.8 C 89 16 154/84 H 99 08/19/20 03:26 36.6 C 70 19 136/76 97 Laboratory Results 08/19/20 06:07 08/19/20 06:07 INR 1.1 (0.9-1.1) 08/18/20 14:20 Diagnostic Findings No further diagnostic imaging PG Care Time/CCT Total # of Minutes Spent Total Time Spent with Patient: Total time spent is greater than 50% in coordination of care (as documented) at patient's floor/unit and/or counseling patient: Coding Level of Care Code 37988 Subseq Hosp Care Lvl 2 Diagnoses Atrial flutter I48.92 Atrial flutter type: unspecified Alcohol use Z72.89 BPH w urinary obs/LUTS N40.1; N13.8 CAD (coronary artery disease) I25.10 Pulmonary nodule 1 cm or greater in diameter R91.1 Hydronephrosis due to obstruction of bladder N13.30; N32.0 Depression F32.9 Dyslipidemia E78.5 DVT prophylaxis Z29.9 (1) Atrial flutter Atrial flutter type: unspecified Qualified Code(s): I48.92 - Unspecified atrial flutter
[2020-08-19] MEDS: LOSARTAN POTASSIUM 50 MG TAB PO SCH (15:29)
[2020-08-19] MEDS: ATORVASTATIN 40 MG TAB PO SCH (21:36)
[2020-08-20] MEDS: NSS + 20MEQ KCL 20 MEQ/1,000 ML BAG IV SCH (05:33)
[2020-08-20] MEDS: PIPERACILLIN/TAZOBACTAM 3.375 GM in DEXTROSE 5% 100 ML IV SCH ×2 (05:34→14:58)
[2020-08-20 05:59] LABS: Basophils # (auto) 0.09 K/uL (0-0.2); Basophils % (auto) 1.6 %; Eosinophils # (auto) 0.35 K/uL (0-0.5); Eosinophils % (auto) 6.3 %; Hematocrit (blood only) 40.3 % (42-52); Hemoglobin 14.1 g/dL (14.0-18.0); Immature Granulocytes # (auto) 0.01 K/uL (0.00-0.02); Immature Granulocytes % (auto) 0.2 %; Lymphocytes # (auto) 1.82 K/uL (1.2-3.4); Lymphocytes % (auto) 32.9 %; Mean Corpuscular Hemoglobin 31.7 pg (25-34); Mean Corpuscular Volume 90.6 fL (80-100); Monocytes # (auto) 0.55 K/uL (0.11-0.59); Monocytes % (auto) 9.9 %; Neutrophils # (auto) 2.71 K/uL (1.4-6.5); Neutrophils % (auto) 49.1 %; Platelet Count 172 K/uL (130-400); RDW Standard Deviation 46.7 fL (36.4-46.3); Red Blood Count 4.45 M/uL (4.7-6.1); White Blood Count 5.53 K/uL (4.8-10.8)
--- NOTE | 2020-08-20 06:09 | Electrocardiogram Report ---
Test Reason : Blood Pressure : / mmHG Vent. Rate : 105 BPM Atrial Rate : 105 BPM P-R Int : 174 ms QRS Dur : 092 ms QT Int : 360 ms P-R-T Axes : 084 -27 056 degrees QTc Int : 475 ms Atrial flutter Nonspecific ST abnormality Abnormal ECG When compared with ECG of 18-AUG-2020 15:21, No significant change Confirmed by Paulo Howard ([id number]) on 08/20/2020 6:08:47 AM Referred By: REFERRED SELF Confirmed By:Paulo Howard
[2020-08-20 06:24] LABS: Albumin Level 3.3 gm/dl (3.4-5.0); BUN Creatinine Ratio 17.9 (10-20); Calcium 8.7 mg/dl (8.5-10.1); Creatinine Clr Calc Pharmacy 75.4 ml/min; Est GFR (African American) 95.1; Est GFR (Non-African American) 82.1; Potassium 4.2 mmol/L (3.5-5.1)
--- NOTE | 2020-08-20 06:25 | Electrocardiogram Report ---
Test Reason : Blood Pressure : / mmHG Vent. Rate : 073 BPM Atrial Rate : 227 BPM P-R Int : 000 ms QRS Dur : 092 ms QT Int : 436 ms P-R-T Axes : 000 -23 037 degrees QTc Int : 480 ms Atrial flutter with variable A-V block Inferior infarct , age undetermined Abnormal ECG When compared with ECG of 18-AUG-2020 19:47, HR has decreased by 32 bpm Confirmed by Paulo Howard ([id number]) on 08/20/2020 6:25:01 AM Referred By: REFERRED SELF Confirmed By:Paulo Howard
[2020-08-20 06:29] LABS: Albumin Globulin Ratio 1.1 (0.9-2); Bilirubin,Total 1.4 mg/dl (0.2-1); Globulin 2.9 gm/dl (2.5-4.0); Total Protein 6.2 gm/dl (6.4-8.2); Troponin I 0.023 ng/ml (0-0.045)
[2020-08-20] MEDS ORDERED: PROPOFOL IV EMULSION 10 MG/ML 20 ML VIAL IV ONE (07:13)
[2020-08-20] MEDS ORDERED: ePHEDrine sulfate 50 MG/ML AMP IV PRN (07:26)
[2020-08-20] MEDS ORDERED: ATROPINE SULFATE 0.1 MG/ML 10ML SYR IV PRN (07:26)
--- NOTE | 2020-08-20 07:26 | Anesthesiology Consultation ---
Date of Service August 20, 2020 Assessment & Plan ASA ASA3 Proposed Anesthesia Anesthesia Type: MAC Risk / Benefits Reviewed With: PT / POA / Parent / Guardian, Accepts Plan and Informed Consent Obtained History Surgery Operation Date: 08/20/20 07:30 Proposed Procedures p Transesophageal Echo w/Anesthesia - Paulo Howard MD s Cardioversion [employer] Duty [employer] w/Anesthesia - Paulo Howard MD Height/Weight Height: 6 ft Weight: 88.4 kg Allergies Allergy/AdvReac Type Severity Reaction Status Date / Time No Known Allergies Allergy Unverified 08/18/20 15:13 Medications Home Medications Medication Instructions Recorded Confirmed Last Taken amlodipine 10 mg PO DAILY 08/18/20 08/18/20 08/18/20 aspirin [Aspirin Low Dose] 81 mg PO DAILY 08/18/20 08/18/20 08/18/20 atorvastatin 40 mg PO QPM 08/18/20 08/18/20 08/17/20 cholecalciferol (vitamin D3) 25 mcg PO DAILY 08/18/20 08/18/20 08/18/20 [Vitamin D3] cyanocobalamin (vitamin B-12) 1,000 mcg PO DAILY 08/18/20 08/18/20 08/18/20 [Vitamin B-12] fluoxetine 10 mg PO Q OTHER DAY 08/18/20 08/18/20 08/18/20 losartan 100 mg PO DAILY 08/18/20 08/18/20 08/18/20 metoprolol succinate 50 mg PO DAILY 08/18/20 08/18/20 08/18/20 omeprazole 20 mg PO DAILY 08/18/20 08/18/20 08/18/20 terazosin 10 mg PO DAILY 08/18/20 08/18/20 08/18/20 Active Medications Generic Name Dose Route Start Last Admin Trade Name Freq PRN Reason Stop Dose Admin Aspirin 81 mg 08/19/20 09:00 08/19/20 09:03 Aspirin 81 Mg Ectab PO 09/18/20 08:59 81 mg DAILY LUDY Administration Atorvastatin Calcium 40 mg 08/18/20 22:18 08/19/20 21:36 Atorvastatin 40 Mg Tab PO 09/17/20 22:17 40 mg QPM LUDY Administration Cyanocobalamin 1,000 mcg 08/19/20 09:00 08/19/20 09:02 Cyanocobalamin 500 Mcg Tablet (Vitamin B-12) PO 09/18/20 08:59 1,000 mcg DAILY LUDY Administration Enoxaparin Sodium 90 mg 08/19/20 21:00 08/19/20 21:36 Enoxaparin 100 Mg/1ml Syr SQ 09/18/20 20:59 90 mg Q12 LUDY Administration Folic Acid 1 mg 08/18/20 09:00 08/19/20 09:03 Folic Acid 1 Mg Tab PO 09/17/20 08:59 1 mg QAM LUDY Administration Piperacillin Sod/Tazobactam 115 mls @ 28.75 mls/hr 08/18/20 22:00 08/20/20 05:34 Sod 3.375 gm/ Dextrose IV 08/28/20 21:59 28.8 mls/hr Q8H LUDY Administration Protocol Potassium Chloride/Sodium Chloride 20 meq in 1,000 mls @ 60 mls/hr 08/18/20 22:18 08/20/20 05:33 Normal Saline W/20 Meq Kcl IV 09/17/20 22:17 60 mls/hr .[id number] LUDY Administration Losartan Potassium 100 mg 08/19/20 14:35 08/19/20 15:29 Losartan Potassium 50 Mg Tab PO 09/18/20 14:34 100 mg QAM LUDY Administration Pantoprazole Sodium 40 mg 08/19/20 09:00 08/19/20 09:02 Pantoprazole 40 Mg Tab PO 09/18/20 08:59 40 mg DAILY LUDY Administration Terazosin HCl 10 mg 08/19/20 09:00 08/19/20 09:02 Terazosin Hcl 5 Mg Cap PO 09/18/20 08:59 10 mg DAILY LUDY Administration Thiamine HCl 100 mg 08/18/20 09:00 08/19/20 09:03 Thiamine Hcl 100 Mg Tab PO 09/17/20 08:59 100 mg QAM LUDY Administration Vitamin D 1,000 units 08/19/20 09:00 08/19/20 09:02 Cholecalciferol 1,000 Units 25 Mcg Tab PO 09/18/20 08:59 1,000 units DAILY LUDY Administration NPO Date Last Intake of Fluids: 08/20/20 Time Last Intake of Fluids: 00:00 Date Last Intake of Solids: 08/20/20 Time Last Intake of Solids: 00:00 Past Medical History Medical History Atrial flutter BPH w urinary obs/LUTS CAD (coronary artery disease) Depression Dyslipidemia GERD (gastroesophageal reflux disease) Hypertension NSVT (nonsustained ventricular tachycardia) Stroke Vitamin B12 deficiency Exercise / Class Metabolic Activity II 4-5 Yardwork/Stairs/Walk up hill Past Surgical History Surgical History History of left hip replacement Hx of CABG Past Anesthesia History No Hx of Anesthesia Complications and No Family Hx of Anesthesia Complications History of PONV No Hx of PONV and No Hx of Motion Sickness Social History Smoking Status: Never smoker Do You Dip or Chew Tobacco: No Hx Alcohol Use: Yes Alcohol type: beer, wine and hard liquor alcohol intake frequency: a few times a week Alcohol Intake Frequency Comment: 1-2 drinks per night Hx Substance Use: No substance use type: does not use Review of Systems denies fever/cough/ colds/ chest pain/ SOB/ ORVILLE denies ORVILLE Physical Exam Vital Signs Last Vital Signs Temp 36.6 C 08/20/20 07:16 Pulse 68 08/20/20 07:16 Resp 18 08/20/20 07:16 BP 144/77 H 08/20/20 03:33 Pulse Ox 98 08/20/20 07:16 ENMT Mouth: no TMJ abnormality and no dentition abnormality Thyromental Distance: > or= 3.5 Finger Breadths Mallampati Class: II Neck neck extension not limited Respiratory normal respiratory effort; no respiratory distress Auscultation: lungs clear to auscultation bilaterally Cardiovascular Rate/Rhythm: regular rate and regular rhythm Neurologic moves all extremities Psychiatric Orientation: alert and oriented x 3 Testing Laboratory Results 08/20/20 05:30 08/20/20 05:30 PT 11.1 Seconds (9.0-12.0) 08/18/20 14:20 INR 1.1 (0.9-1.1) 08/18/20 14:20 APTT 24.8 Seconds (21.0-31.0) 08/18/20 14:20 Urine Color Yellow 08/18/20 14:40 Urine Appearance Clear (Clear) 08/18/20 14:40 Urine pH 7.0 (4.5-7.5) 08/18/20 14:40 Ur Specific [place] 1.009 (1.000-1.030) 08/18/20 14:40 Urine Protein Negative (Negative) 08/18/20 14:40 Urine Glucose (UA) Negative (Negative) 08/18/20 14:40 Urine Ketones Negative (Negative) 08/18/20 14:40 Urine Nitrite Negative (Negative) 08/18/20 14:40 Ur Leukocyte Esterase Negative (Negative) 08/18/20 14:40
--- NOTE | 2020-08-20 07:52 | Cardioversion ---
Date of Service August 20, 2020 PG Electrical Cardioversion Rp Electrical Cardioversion Report Procedure: DC Cardioversion (elective) Indication: Atrial Flutter Consent: Informed written consent was obtained prior to the procedure and sedation. Sediation: Provided by Anesthesiology Anticoagulation: Pt was placed on anticoagulation during this hospital stay. JEZ was completed prior to cardioversion and there was no visualized atrial thrombus. Timeout: Performed at 0728 AM. Procedure: Once patient was sufficiently sedated, 150 Joules were delivered in a synchronized fashion which successfully converted atrial flutter to sinus bradycardia. He tolerated the procedure well without known complication. Plan: 1. Remain on anticoagulation without interruption for at least 4 weeks following cardioversion. intermediate anticoagulation is indicated. 2. Reassess heart rate while in sinus and adjust betablocker as appropriate. (He has reported resting HR as 40-50s.) 3. Follow up with his primary swimming pool service technician when he returns home to [place]. Coding Level of Care Code Cardioversion, elective Additional Codes Electrical Cardioversion Report ([id number])
--- NOTE | 2020-08-20 08:19 | Anesthesiology Progress Note ---
Date of Service August 20, 2020 Anesthesia Post Procedure Vital Signs Vital Signs: Temp Pulse Pulse Resp BP Pulse Ox Pulse Ox 08/20/20 08:05 43 L 18 120/63 96 08/20/20 07:50 47 L 18 111/65 97 08/20/20 07:40 60 08/20/20 07:16 36.6 C 68 18 98 08/20/20 03:33 36.9 C 73 19 144/77 H 97 08/20/20 00:25 59 L 08/19/20 23:33 36.8 C 99 H 17 159/95 H 97 08/19/20 22:18 97 08/19/20 19:23 36.6 C 67 20 163/81 H 97 08/19/20 17:28 56 L 08/19/20 15:31 36.6 C 64 17 164/90 H 96 08/19/20 11:08 36.9 C 60 17 151/71 H 96 08/19/20 09:04 72 Transfer of Care Handoff Completed per policy Notes Mental Status: alert / awake / arousable and participated in evaluation Patient Amnestic to Procedure: Yes Nausea / Vomiting: adequately controlled Pain: adequately controlled Airway Patency, RR, SpO2: stable & adequate BP & HR: stable & adequate Hydration State: stable & adequate Anesthetic Complications: no major complications apparent and Pt Satisfied with anesthetic care
[2020-08-20] MEDS: LOSARTAN POTASSIUM 50 MG TAB PO SCH (08:44)
[2020-08-20] MEDS: FOLIC ACID 1 MG TAB PO SCH (08:45)
[2020-08-20] MEDS: ASPIRIN 81 MG ECTAB PO SCH (08:45)
[2020-08-20] MEDS: ENOXAPARIN 100 MG/1ML SYR SQ SCH (08:46)
[2020-08-20] MEDS: TERAZOSIN HCL 5 MG CAP PO SCH (08:46)
[2020-08-20] MEDS: PANTOprazole 40 MG TAB PO SCH (08:47)
[2020-08-20] MEDS: THIAMINE HCL 100 MG TAB PO SCH (08:48)
[2020-08-20] MEDS: CYANOCOBALAMIN 500 MCG TABLET (VITAMIN B-12) PO SCH (08:48)
[2020-08-20] MEDS: CHOLECALCIFEROL 1,000 UNITS 25 MCG TAB PO SCH (08:48)
[2020-08-20] MEDS ORDERED: METOPROLOL SUCC 50MG EXT REL TAB PO SCH (09:00)
[2020-08-20] MEDS ORDERED: amLODIPine BESYLATE 5 MG TAB PO SCH (09:00)
[2020-08-20] MEDS ORDERED: FLUoxetine HCL 10 MG CAP PO SCH (09:00)
--- NOTE | 2020-08-20 11:31 | Cardiology Progress Note ---
Date of Service August 20, 2020 Assessment & Plan (1) Atrial flutter: (2) CAD (coronary artery disease): (3) Hx of CABG: (4) Alcohol use: (5) Hypertension: (6) Mitral regurgitation: ASSESSMENT/PLAN: 1. Atrial flutter: Possibly symptomatic in the sense that his exercise tolerance has decreased on his usual exercise routine a few days prior to hospitalization. He is now status post cardioversion. Continue metoprolol succinate 50 mg daily. While in sinus his heart rate is in the 40s to 50s at rest but this is his usual baseline per his report. We discussed the importance of anticoagulation therapy indefinitely, but especially no interruption in the next 4 weeks following cardioversion due to increased stroke risk. Recommend Eliquis or Xarelto on discharge. Close follow-up with his primary estate manager in the next 1-2 weeks when he returns to [place]. 2. CAD s/p CABG x 4: No angina. Reportedly 1 graft was noted to be occluded at some point following CABG. On aspirin. Continue high-intensity statin therapy and beta-adan. 3. Alcohol use: Recommended reducing alcohol consumption to hopefully reduce atrial flutter burden. 4. Hypertension: Blood pressure has normalized after resuming home doses of amlodipine and losartan. 5. Mitral regurgitation: Non severe. Can be followed as an outpatient. 6. Disposition: Can be discharged from a cardiology standpoint after walking in the hallways. A call is being placed to his primary estate manager, Dr. Raghu gamino [phone], to update him of this hospitalization. Plan of care was personally discussed with primary service, Mr. Maloney. Please call with any other questions or concerns. Admission and Anticipated Discharge Date Admission Date: August 18, 2020 Subjective He underwent transesophageal ECHO earlier this morning. There was no left atrial appendage thrombus. He then underwent DC cardioversion. He tolerated the procedure well. Cardioversion was successful in converting him to sinus rhythm. He remains in sinus rhythm late this morning. Telemetry was reviewed. He feels well. He denies chest pain, shortness of breath, syncope, near- syncope, palpitations, edema, or bleeding. He has not yet ambulated in the hallways. Review of systems: As above. Physical Exam Physical Exam: Gen.: No acute distress. Alert and oriented. HEENT: Anicteric sclera. Neck: No JVD. Cardiac: Regular in the 50s. Normal S1-S2. No murmurs, rubs, or gallops. Pulmonary: Clear to auscultation bilaterally without wheezes, rales, or rhonchi. Abdomen: Soft, nontender, nondistended, with normoactive bowel sounds. No bruits noted. Extremities: 2+ radial pulses bilaterally. 2+ posterior tibialis pulses bilaterally. No edema or cyanosis. Psychiatric: Affect appears appropriate. Results & Data ([facility]) Vital Signs (Past 12 Hours) Vital Signs Temp Pulse Pulse Resp BP Pulse Ox 08/20/20 08:52 36.7 C 54 L 18 136/73 97 08/20/20 08:23 46 L 08/20/20 08:20 47 L 18 145/71 H 96 08/20/20 08:05 43 L 18 120/63 96 08/20/20 07:50 47 L 18 111/65 97 08/20/20 07:40 60 08/20/20 07:16 36.6 C 68 18 98 08/20/20 03:33 36.9 C 73 19 144/77 H 97 08/20/20 00:25 59 L 08/19/20 23:33 36.8 C 99 H 17 159/95 H 97 Laboratory Results Laboratory Results - last 24 hr 08/19/20 08/19/20 08/20/20 12:34 20:47 05:30 WBC RBC Hgb Hct MCV MCH MCHC RDW Std Deviation RDW Coeff of Gila Plt Count MPV Immature Gran % (Auto) Neut % (Auto) Lymph % (Auto) [place] % (Auto) Eos % (Auto) Baso % (Auto) Neut # (Auto) Lymph # (Auto) [place] # (Auto) Eos # (Auto) Baso # (Auto) Immature Gran # (Auto) Sodium 142 Potassium 4.2 Chloride 111 H Carbon Dioxide 29 Anion Gap 2.0 L BUN 16 Creatinine 0.90 Est Cr Clr Drug Dosing 75.4 Est GFR ( Amer) 95.1 Est GFR (Non-Af Amer) 82.1 BUN/Creatinine Ratio 17.9 Glucose 90 Calcium 8.7 Magnesium 2.0 Total Bilirubin 1.4 H AST 27 ALT 35 Alkaline Phosphatase 68 Troponin I 0.027 0.019 0.023 Total Protein 6.2 L Albumin 3.3 L Globulin 2.9 Albumin/Globulin Ratio 1.1 08/20/20 05:30 WBC 5.53 RBC 4.45 L Hgb 14.1 Hct 40.3 L MCV 90.6 MCH 31.7 MCHC 35.0 RDW Std Deviation 46.7 H RDW Coeff of Gila 14.0 Plt Count 172 MPV 11.0 H Immature Gran % (Auto) 0.2 Neut % (Auto) 49.1 Lymph % (Auto) 32.9 [place] % (Auto) 9.9 Eos % (Auto) 6.3 Baso % (Auto) 1.6 Neut # (Auto) 2.71 Lymph # (Auto) 1.82 [place] # (Auto) 0.55 Eos # (Auto) 0.35 Baso # (Auto) 0.09 Immature Gran # (Auto) 0.01 Sodium Potassium Chloride Carbon Dioxide Anion Gap BUN Creatinine Est Cr Clr Drug Dosing Est GFR ( Amer) Est GFR (Non-Af Amer) BUN/Creatinine Ratio Glucose Calcium Magnesium Total Bilirubin AST ALT Alkaline Phosphatase Troponin I Total Protein Albumin Globulin Albumin/Globulin Ratio Diagnostic Findings Telemetry personally reviewed: Atrial flutter until after cardioversion and then has remained in sinus rhythm with heart rates in the 40s to 50s. No significant pauses. Transesophageal echo 08/20/2020: LV systolic function appeared normal. There was no left atrial appendage thrombus. Mild mitral regurgitation. Full report to follow. Cardioversion done earlier this morning with successful in establishing sinus rhythm. Medications Administered Current Inpatient Medications Acetaminophen (Acetaminophen 325 Mg Tab) 650 mg PO Q4H PRN PRN Reason: Pain or Fever Stop: 09/17/20 22:17 Amlodipine Besylate (Amlodipine Besylate 5 Mg Tab) 10 mg PO QAM [facility] Stop: 09/19/20 08:59 Last Admin: 08/20/20 08:47 Dose: 10 mg Documented by: Aspirin (Aspirin 81 Mg Ectab) 81 mg PO DAILY [facility] Stop: 09/18/20 08:59 Last Admin: 08/20/20 08:45 Dose: 81 mg Documented by: Atorvastatin Calcium (Atorvastatin 40 Mg Tab) 40 mg PO QPM [facility] Stop: 09/17/20 22:17 Last Admin: 08/19/20 21:36 Dose: 40 mg Documented by: Atropine Sulfate (Atropine Sulfate 0.1 Mg/Ml 10ml Syr) 0.5 mg IV Q1M PRN PRN Reason: PACU Use-HR<40 &/or Bradycardi Stop: 08/20/20 15:26 Cyanocobalamin (Cyanocobalamin 500 Mcg Tablet (Vitamin B-12)) 1,000 mcg PO DAILY [facility] Stop: 09/18/20 08:59 Last Admin: 08/20/20 08:48 Dose: 1,000 mcg Documented by: Enoxaparin Sodium (Enoxaparin 100 Mg/1ml Syr) 90 mg SQ Q12 [facility] Stop: 09/18/20 20:59 Last Admin: 08/20/20 08:46 Dose: 90 mg Documented by: Ephedrine Sulfate (Ephedrine Sulfate 50 Mg/Ml Amp) 5 mg IV Q5M PRN PRN Reason: PACU Use Only-SBP<90 mmHg Stop: 08/20/20 15:26 Fluoxetine HCl (Fluoxetine Hcl 10 Mg Cap) 10 mg PO Q2D@0900 [facility] Stop: 09/19/20 08:59 Last Admin: 08/20/20 08:47 Dose: 10 mg Documented by: Folic Acid (Folic Acid 1 Mg Tab) 1 mg PO QAM [facility] Stop: 09/17/20 08:59 Last Admin: 08/20/20 08:45 Dose: 1 mg Documented by: Lorazepam (Ativan) 1 mg in 2 mls @ 2 mls/min IV UD PRN; Protocol PRN Reason: EtOH Withdrawl AWSS Score 6,7 Stop: 09/17/20 20:24 Lorazepam (Ativan) 2 mg in 4 mls @ 4 mls/min IV UD PRN; Protocol PRN Reason: EtOH Withdrawl AWSS Score 8,9 Stop: 09/17/20 20:24 Lorazepam (Ativan) 3 mg in 6 mls @ 4 mls/min IV ONCE PRN; Protocol PRN Reason: EtOH Withdrawl AWSS Score >=10 Stop: 09/17/20 20:24 Piperacillin Sod/Tazobactam (Sod 3.375 gm/ Dextrose) 115 mls @ 28.75 mls/hr IV Q8H [facility]; Protocol Stop: 08/28/20 21:59 Last Infusion: 08/20/20 10:13 Dose: Infused Documented by: Potassium Chloride/Sodium Chloride (Normal Saline W/20 Meq Kcl) 20 meq in 1,000 mls @ 60 mls/hr IV .[id number] [facility] Stop: 09/17/20 22:17 Last Admin: 08/20/20 05:33 Dose: 60 mls/hr Documented by: Losartan Potassium (Losartan Potassium 50 Mg Tab) 100 mg PO QAM [facility] Stop: 09/18/20 14:34 Last Admin: 08/20/20 08:44 Dose: 100 mg Documented by: Metoprolol Succinate (Metoprolol Succ 50mg Ext Rel Tab) 50 mg PO QAM [facility] Stop: 09/19/20 08:59 Last Admin: 08/20/20 09:08 Dose: Not Given Documented by: Metoprolol Tartrate (Metoprolol Tartrate 1 Mg/Ml Vial) 5 mg IV Q4 PRN PRN Reason: Tachycardia Stop: 09/17/20 22:17 Ondansetron HCl (Ondansetron Inj 2 Mg/Ml 2 Ml Vial) 4 mg IV Q6H PRN PRN Reason: Nausea Stop: 09/17/20 22:17 Pantoprazole Sodium (Pantoprazole 40 Mg Tab) 40 mg PO DAILY [facility] Stop: 09/18/20 08:59 Last Admin: 08/20/20 08:47 Dose: 40 mg Documented by: Terazosin HCl (Terazosin Hcl 5 Mg Cap) 10 mg PO DAILY [facility] Stop: 09/18/20 08:59 Last Admin: 08/20/20 08:46 Dose: 10 mg Documented by: Thiamine HCl (Thiamine Hcl 100 Mg Tab) 100 mg PO QAM [facility] Stop: 09/17/20 08:59 Last Admin: 08/20/20 08:48 Dose: 100 mg Documented by: Vitamin D (Cholecalciferol 1,000 Units 25 Mcg Tab) 1,000 units PO DAILY [facility] Stop: 09/18/20 08:59 Last Admin: 08/20/20 08:48 Dose: 1,000 units Documented by: PG Care Time/CCT Total # of Minutes Spent Total Time Spent with Patient: Total time spent is greater than 50% in coordination of care (as documented) at patient's floor/unit and/or counseling patient: Coding Level of Care Code 37919 Subseq Hosp Care Lvl 3 Diagnoses Atrial flutter I48.92 Atrial flutter type: unspecified CAD (coronary artery disease) I25.10 Hx of CABG Z95.1 Alcohol use Z72.89 Hypertension I10 Mitral regurgitation I34.0 (1) Atrial flutter Atrial flutter type: unspecified Qualified Code(s): I48.92 - Unspecified atrial flutter
--- NOTE | 2020-08-20 15:00 | XCELERA ---
[id number]
--- NOTE | 2020-08-21 06:00 | Electrocardiogram Report ---
Test Reason : Blood Pressure : / mmHG Vent. Rate : 073 BPM Atrial Rate : 234 BPM P-R Int : 000 ms QRS Dur : 090 ms QT Int : 422 ms P-R-T Axes : 130 -26 019 degrees QTc Int : 464 ms Atrial flutter with variable A-V block Inferior infarct (cited on or before 19-AUG-2020) Abnormal ECG When compared with ECG of 19-AUG-2020 05:21, No significant change was found Confirmed by Paulo Howard ([id number]) on 08/21/2020 5:59:58 AM Referred By: REFERRED SELF Confirmed By:Paulo Howard
--- NOTE | 2020-08-21 06:07 | Electrocardiogram Report ---
Test Reason : Blood Pressure : / mmHG Vent. Rate : 043 BPM Atrial Rate : 043 BPM P-R Int : 214 ms QRS Dur : 088 ms QT Int : 478 ms P-R-T Axes : 078 -20 023 degrees QTc Int : 403 ms Marked sinus bradycardia with 1st degree A-V block Possible Left atrial enlargement Possible Inferior infarct (cited on or before 19-AUG-2020) Abnormal ECG When compared with ECG of 20-AUG-2020 04:25, Sinus rhythm has replaced Atrial flutter Vent. rate has decreased BY 30 BPM Confirmed by Paulo Howard ([id number]) on 08/21/2020 6:07:38 AM Referred By: REFERRED SELF Confirmed By:Paulo Howard
--- NOTE | 2020-08-24 17:33 | Discharge Summary ---
Date of Service August 24, 2020 Admission HPI Per Admitting Provider The patient is a 79-year-old male with a past medical history including hypertension, hyperlipidemia, vitamin B12 deficiency, depression, GERD, BPH with LUTS, status post CABG, atrial fibrillation post CABG requiring brief anticoagulation. He has traveled here from [place] to visit his son who lives in the area, and has noted a sensation of palpitations in his chest. He does not have any associated shortness of breath or dyspnea on exertion, and denies any pain or change in usual swelling in legs. Admission Exam Per Admitting Provider The patient is awake, alert and oriented 3, well developed and well nourished, normocephalic and atraumatic, lying in bed and in no acute distress. HEENT--PERRL, EOMI, mucous membranes and oropharynx normal. Neck--supple. No JVD. No bruits. Thyroid normal, trachea midline, no adenopathy. Heart--normal S1 and S2, extrasystoles. No murmurs, rubs or gallops. Lungs--clear bilaterally, no respiratory distress, no accessory muscle use. Abdomen--normal bowel sounds and soft. Nontender. Nondistended, no hernias or masses, no organomegaly. Extremities--no cyanosis or clubbing. Trace bilateral pretibial pitting edema. Dermatologic--normal skin turgor, normal color, no abnormal lymph nodes, no rash. Neurologic--cranial nerves II through XII grossly intact. Rheumatologic--normal range of motion. Psychiatric--normal affect. Principal Diagnosis Atrial flutter with RVR Ethanol use Discharge Exam GENERAL : No acute distress EYES: No icterus, gaze conjugate NOSE: No evidence of epistaxis MOUTH: No lesions or candidiasis NECK: Supple LUNGS: CTA B/L, no wheezes, rales or rhonchi HEART: Regular, rate controlled. Now converted to normal sinus rhythm ABDOMEN: Soft, NT, ND, BS Present EXTREMITIES: No LE edema, pedal pulses intact NEURO: A&OX3 Discharge Data Allergies Allergy/AdvReac Type Severity Reaction Status Date / Time No Known Allergies Allergy Unverified 08/18/20 15:13 Consultations 08/18/20 18:24 ED Decision to Admit Stat 08/18/20 22:18 Consult Cardiology Routine 08/19/20 09:27 Consult Anesthesiology Routine 08/19/20 09:30 Consult Anesthesiology Routine Procedures Performed Operation Date: 08/20/20 07:30 Actual Procedures p Echo Transesophageal - Paulo Howard MD s Echo Doppler Complete - Paulo Howard MD s Echo Color Flow - Paulo Howard MD s Cardioversion - Paulo Howard MD Ordered Studies 08/18/20 16:20 CT angio chest PE protocol Stat 08/18/20 17:48 CT abd pelvis wo con Stat Hospital Course (1) Atrial flutter: Cardiology consulted and patient seen Patient on Lovenox 90 mg SQ every 12 hours for anticoagulation while in atrial flutter Rate controlled Continue metoprolol succinate 50 mg p.o. 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 daily and folic acid 1 mg p.o. daily Patient lives in [place] Advised for complete ethanol abstinence (3) BPH w urinary obs/LUTS: Continue Terazosin No indication for Díaz catheter at this time Patient urinating well per his report (4) CAD (coronary artery disease): History of PCI with stenting Patient denies chest pain at this time Continue metoprolol, aspirin, and atorvastatin No specific changes to EKG (5) Pulmonary nodule 1 cm or greater in diameter: Outpatient surveillance per Fleischner criteria (6) Hydronephrosis due to obstruction of bladder: No significant pain No hematuria Continue Terazosin Follow-up with outpatient urology once he is home in [place] (7) Depression: No emotional lability Continue Prozac 10 mg p.o. daily (8) Dyslipidemia: Continue atorvastatin 40 mg p.o. daily Total Time Total Time Spent Total Time Spent (In Minutes): 40 Total Time Includes: Examination of the Patient, Discharge Planning, Medication Reconciliation and Communication With Other Providers Discharge Plan Discharge Items Patient Disposition: Home - Self-Care Reason For Visit: NEW ONSET A FLUTTER W/VARIABLE BLOCK Discharge Diagnosis: New onset atrial flutter with variable block Condition on Discharge: Good Activity: Resume your previous activity Lifting: Gradually increase as tolerated Bathing: No limitations Sexual Activity: When tolerated Exercise/Sports: Gradually increase as tolerated Driving/Machine Use: Resume 1 day after discharge Weightbearing: Full weightbearing Non-emergency contact: Primary Care Provider and Halal Butcher Call non-emergency contact if: you have any medication questions and your symptoms worsen Follow-up/Referrals: Rebecca Olivo MD [Primary Care Provider] - Diet: Heart Healthy Addtl Attending Provider Instructions: You were admitted with new onset atrial flutter. You had a transesophageal echocardiogram followed by cardioversion and are currently in normal sinus rhythm. You are being discharged on anticoagulant. This should be taken as directed. You should see your building serviceman within 10 days of discharge from the hospital. You should not drive today. Should you have feelings of missed heartbeats or fast heart rate, you should not drive at that time. Abstain from alcohol use as this can trigger atrial arrhythmias. Follow-up with your primary care physician within 7 days. Pending Studies at Discharge: No Stand-Alone Forms: My [facility] Medications and DC Order Prescriptions: New Xarelto 20 mg tablet 20 mg PO DAILY Qty: 30 RF: 0 Continued atorvastatin 40 mg tablet 40 mg PO QPM RF: 0 metoprolol succinate 50 mg tablet extended release 24 hr 50 mg PO DAILY RF: 0 amlodipine 10 mg tablet 10 mg PO DAILY RF: 0 losartan 50 mg tablet 100 mg PO DAILY RF: 0 fluoxetine 10 mg capsule 10 mg PO Q OTHER DAY RF: 0 omeprazole 20 mg capsule,delayed release(DR/EC) 20 mg PO DAILY RF: 0 cyanocobalamin (vitamin B-12) [Vitamin B-12] 1,000 mcg Tablet 1,000 mcg PO DAILY RF: 0 aspirin [Aspirin Low Dose] 81 mg Tablet,Delayed Release (Dr/Ec) 81 mg PO DAILY RF: 0 terazosin 10 mg capsule 10 mg PO DAILY RF: 0 cholecalciferol (vitamin D3) [Vitamin D3] 25 mcg (1,000 unit) Tablet 25 mcg PO DAILY RF: 0 Discharge Orders: Discharge Order (Routine); Ordered 08/20/20 Ordered By: Gustavo Maloney Admission Data Admit Date/Time: 08/18/20 20:23 Attending Provider: Willian Ying Admit Provider: Ángel Dasilva Primary Care Provider: Rebecca Olivo Other Providers: Tony Goldsmith ; Paulo Howard ; Rupal Jenkins ; Osmany Dietz ; Candice Dietz E ; Isidoro Marie E ; Bryanna Chapa ; Cleo Bustamante ; Kasi Bustamante V ; Shameka Degroot ; Ana Cristina Tucker ; Nery Cadet ; Rupal Barcenas. ; Chadd Mckeon ; Jose Alejandro Griffin ; Emilie Lane ; Castro [address] ; Batsheva Bernal ; Willian Frederick ; Cristina Thakkar ; Zeynep Brooks A ; Lida Godinez ; Robert Bolaños ; Nisreen Ibrahim ; Micky Ruiz ; Jorge Solis ; Chase Crow ; Rosana Garber ; Luzmaria Fowler ; Suzy Gonzalez ; Mil Alvarado ; Justin Yeung ; Andres Jeffrey ; Raghu Jeffrey ; Dayday Montoya ; Nellie Floyd ; Brenden Love ; Filiberto Shine ; Kasi Gay ; Ryne De [place] ; Maria Fernanda Miles ; Pia Lawrence ; Shameka Joshi ; Netta Romo ; Freddy Romo ; Ada Farr ; Manan Montanez ; Jessie Ying ; Markus Ureña ; Ada Grant ; Joe Call ; Arielle Ley ; Jayce Downing ; Annel Martin Other Interventions: Discharge Summary Assessment (RN) Last Done: 08/20/20 14:37 Supervising Physician Co-Signing Physician Notes Patient seen and examined on the day of discharge. I agree with the discharge summary by Gustavo ESPITIA. I have reviewed the chart including labs, imaging and plans for discharge. I discussed with arcadio Robbins for discharge feeling well, cardioversion was successful he knows to follow up with his building serviceman in [place] - Atrial flutter: successful cardioversion will remain on Metoprolol 50mg daily Xarelto 20mg daily for full anticoagulation, stroke prevention Coding Level of Care Code D/C Day Management >30 mins Diagnoses Atrial flutter I48.92 Atrial flutter type: unspecified Alcohol use Z72.89 BPH w urinary obs/LUTS N40.1; N13.8 CAD (coronary artery disease) I25.10 Pulmonary nodule 1 cm or greater in diameter R91.1 Hydronephrosis due to obstruction of bladder N13.30; N32.0 Depression F32.9 Dyslipidemia E78.5 Time Spent (min) 35
== END 2020-08-20 15:00 | disposition home or self-care (01) | DRG 309 ==
LOC: ED 12:36 → 2S 20:23 → SUATTDRO 20:23 → 2S 22:20